=== PATIENT | male | born 1960 | race Caucasian/White ===

== ENCOUNTER 2020-06-18 08:23 | Emergency (ER) | payer MEDICAID, SELFPAY ==
[2020-06-18] VITALS (7 sets, daily range): BP systolic 115–156; BP diastolic 44–100; PULSE 107–118; RESP 20–24; TEMP 36.9–37; O2SAT 94–99; BMI 27.5
--- NOTE | 2020-06-18 08:33 | XRR_ITS ---
PROCEDURE INFORMATION: Exam: XR Chest, 1 View Exam date and time: 06/18/2020 8:48 AM Age: 60 years old Clinical indication: Shortness of breath; Additional info: Dyspnea TECHNIQUE: Imaging protocol: XR of the chest Views: 1 view. COMPARISON: No relevant prior studies available. FINDINGS: Lungs: Interstitial pulmonary infiltrates are present especially in the lung bases. This could be due to chronic fibrosis but an acute interstitial pneumonitis cannot be excluded. There is no focal airspace consolidation. Pleural space: Unremarkable. No pleural effusion. No pneumothorax. Heart/Mediastinum: Unremarkable. No cardiomegaly. Bones/joints: Unremarkable. XR/XR chest 1V portable [id number] IMPRESSION: Bibasilar interstitial infiltrates may be due to chronic fibrosis but an interstitial pneumonitis cannot be excluded. Clinical correlation and follow-up are advised.
--- NOTE | 2020-06-18 08:33 | ECG_ITS ---
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 Measurements Intervals [place] Rate: 111 P: 59 [place]: 132 QRS: 10 QRSD: 103 T: 89 QT: 355 QTc: 484 Interpretive Statements SINUS TACHYCARDIA POSSIBLE LEFT ATRIAL ENLARGEMENT [-0.1mV P WAVE IN V1/V2] ABNORMAL RHYTHM ECG No previous ECG available for comparison Electronically Signed On 06-18-2020 21:58:26 ASSEMBLY MANAGER by Kelly Pearl M.D. [id number]
--- NOTE | 2020-06-18 08:36 | W.ED.SOB ---
HPI - SOB/Dyspnea General: Chief Complaint: Shortness of Breath/Dyspnea Stated Complaint: SOB Time Seen by Provider: 06/18/20 08:25 Source: patient Mode of arrival: ambulatory Limitations: no limitations History of Present Illness: HPI Narrative: Patient comes in today with shortness of breath for 2 days. Patient called the emergency medical services this morning needing a breathing treatment as he reports. EMS gave him Brethine in order to avoid the use of nebulizer due to the COVID-19 pandemic. Patient states that he had cold symptoms for about 1 week. Patient denied any chest pain. Patient is a pack-a-day smoker. Patient does use a BiPAP machine at night. MD elicited complaint: shortness of breath Review of Systems General: Reports: 10 or more systems reviewed and unremarkable except in HPI and below Resp: Reports: dyspnea Physical Exam Const: COMMON NORMALS: no acute distress and patient oriented x3 GENERAL APPEARANCE: cooperative HENMT: COMMON NORMALS: normocephalic and Normal external nose present HEAD & SCALP: normal to inspection and normocephalic NOSE: Normal external nose present MOUTH: Normal oral and palatal mucosa present Eye: GENERAL EYE: appearance normal, both eyes and all related structures Neck/C-Spine: COMMON NORMALS: full ROM Lymph: LYMPHATIC: no lymphadenopathy noted Chest: COMMONS NORMALS: normal inspection of the chest Resp: COMMON NORMALS: normal respiratory effort EFFORT & INSPECTION: Yes able to speak in complete sentences AUSCULTATION: wheezes and diminished lung sounds Cardio: COMMON NORMALS: regular rate and regular rhythm RATE: regular rate RHYTHM: regular rhythm GI: COMMON NORMALS: non-tender Back/Pelvis: COMMON NORMALS: thoracic and lumbar spine normal to inspection Extremity: COMMON NORMALS: normal to inspection Neuro: COMMON NORMALS: patient oriented x3 and moves all extremities Psych: COMMON NORMALS: mental status grossly normal and cooperative Skin: COMMON NORMALS: no rashes or lesions noted GENERAL SKIN EXAM: no rashes or lesions noted Course Vital Signs: Vital signs: Vital Signs Temperature 98.5 F 06/18/20 08:53 Pulse Rate 116 H 06/18/20 11:00 Respiratory Rate 24 H 06/18/20 11:00 Blood Pressure 156/100 06/18/20 11:00 Pulse Oximetry 97 06/18/20 11:00 MDM - SOB/Dyspnea MDM Narrative: Medical decision making narrative: Patient came in with increased shortness of breath. Patient reported difficulty getting breath. Patient had been evaluated by EMS and they did not note significant hypoxia. Blood pressure was elevated, pulse rate was elevated, and respiration was elevated. Patient was afebrile. Lungs noted some mild wheezing with decreased air into the lower lobes. Skin was warm and dry. Differential diagnosis includes not limited to COVID-19 pneumonia, bacterial pneumonia, CHF, exacerbation of COPD. Chest x-ray noted some interstitial infiltrate bilaterally in the bases. No obvious pneumonia was noted. BNP was 1000. Troponin was 26 with no change of 2 hours. CBC noted a white count of 16,000. CMP was unremarkable. Patient was given 125 Solu-Medrol for concerns of respiratory distress due to exacerbation of COPD due to patient's history of pack-a-day smoking. After laboratory values had come back with chest x-ray it was noted that patient was probably an CHF and he was medicated with 20 of furosemide and given 2 mg of Ativan. Patient had significant improvement in symptoms after beginning diuresis. Patient reported understanding of care plan and need for follow-up or return to the emergency department. Lab Data: Labs: Lab Results 06/18/20 06/18/20 06/18/20 Range/Units 08:30 08:30 08:30 WBC 16.7 H (4.0-10.0) 10^3/ uL RBC 5.63 H (4.1-5.3) 10^6/u L Hgb 15.5 (11.7-16.6) g/dL Hct 48.7 (42.0-52.0) % MCV 86.5 (80-94) fL MCH 27.5 L (28.0-34.0) pg MCHC 31.8 (30.0-36.0) g/dL RDW 13.3 (12.1-15.1) % Plt Count 385 (130-400) 10^3/c mm MPV 10.4 (7.4-10.4) fL Neut % (Auto) 58.6 % Lymph % (Auto) 33.1 % [place] % (Auto) 4.2 % Eos % (Auto) 3.0 % Baso % (Auto) 0.5 % Neut # (Auto) 9.79 H (1.8-7.7) 10^3/u L Lymph # (Auto) 5.5 H (0.8-4.8) 10^3/u L [place] # (Auto) 0.7 (0.2-0.9) 10^3/u L Eos # (Auto) 0.5 (0.0-0.8) 10^3/u L Baso # (Auto) 0.1 (0.0-0.1) 10^3/u L Nucleated RBC % (a uto) 0 % Nucleated RBCs # 0.0 /100WBC PT 12.70 (12.1-14.9) SECO NDS INR 0.92 (0.8-1.2) APTT 28.2 (23.9-36.7) SECO NDS D-Dimer 0.56 (0-0.59) ug/mIFE U Specimen Type Sample Site ABG pH (7.35-7.45) ABG pCO2 (35-45) mmHg ABG pO2 (80.0-100.0) mmH g ABG HCO3 (22-26) mmol/L ABG Base Excess (-2.0-2.0) mmol/ L Richar Test Hematocrit (42-52) % O2 Delivery Device O2 Liters/Min % FiO2 % Diesel Truck Mechanic ID Sodium 143 (136-145) mmol/L Potassium 3.7 (3.5-5.1) mmol/L Chloride 103 (98-107) mmol/L Carbon Dioxide 27 (22-29) mmol/L Anion Gap 16.7 (5-19) BUN 14 (6-20) mg/dL Creatinine 1.1 (0.7-1.2) mg/dL GFR Calculation 68.5 L (90-130) mL/min Glucose 111 (65-115) mg/dL Calculated Osmolal ity 297 H (285-295) mOsm/k g Calcium 9.5 (8.5-10.5) mg/dL Total Bilirubin 0.2 (0.15-1.2) mg/dL AST 57 H (0-40) U/L ALT 74 H (0-41) U/L Alkaline Phosphata se 90 (40-130) IU/L Troponin T Baselin e (0-15) ng/L Troponin T 120 Min [place] (0-15) ng/L Delta Troponin T (0-10) ABS# C-Reactive Protein 1.3 (0.0-4.9) mg/L NT-Pro-B Natriuret Pep 1001 H (0-125) pg/mL Total Protein 7.2 (6.6-8.7) g/dL Albumin 4.2 (3.5-5.2) g/dL Globulin 3.0 (1.3-4.6) g/dL SARS-CoV-2 Ag (Rap id) (Negative) 06/18/20 06/18/20 06/18/20 Range/Units 08:30 08:40 09:07 WBC (4.0-10.0) 10^3/ uL RBC (4.1-5.3) 10^6/u L Hgb (11.7-16.6) g/dL Hct (42.0-52.0) % MCV (80-94) fL MCH (28.0-34.0) pg MCHC (30.0-36.0) g/dL RDW (12.1-15.1) % Plt Count (130-400) 10^3/c mm MPV (7.4-10.4) fL Neut % (Auto) % Lymph % (Auto) % [place] % (Auto) % Eos % (Auto) % Baso % (Auto) % Neut # (Auto) (1.8-7.7) 10^3/u L Lymph # (Auto) (0.8-4.8) 10^3/u L [place] # (Auto) (0.2-0.9) 10^3/u L Eos # (Auto) (0.0-0.8) 10^3/u L Baso # (Auto) (0.0-0.1) 10^3/u L Nucleated RBC % (a uto) % Nucleated RBCs # /100WBC PT (12.1-14.9) SECO NDS INR (0.8-1.2) APTT (23.9-36.7) SECO NDS D-Dimer (0-0.59) ug/mIFE U Specimen Type Arterial Sample Site Radial, left ABG pH 7.39 (7.35-7.45) ABG pCO2 41.0 (35-45) mmHg ABG pO2 139.0 H (80.0-100.0) mmH g ABG HCO3 24.6 (22-26) mmol/L ABG Base Excess -0.5 (-2.0-2.0) mmol/ L Richar Test Pos Hematocrit 46.2 (42-52) % O2 Delivery Device Nrb O2 Liters/Min 15.0 % FiO2 100.0 % Diesel Truck Mechanic ID Ed Sodium (136-145) mmol/L Potassium (3.5-5.1) mmol/L Chloride (98-107) mmol/L Carbon Dioxide (22-29) mmol/L Anion Gap (5-19) BUN (6-20) mg/dL Creatinine (0.7-1.2) mg/dL GFR Calculation (90-130) mL/min Glucose (65-115) mg/dL Calculated Osmolal ity (285-295) mOsm/k g Calcium (8.5-10.5) mg/dL Total Bilirubin (0.15-1.2) mg/dL AST (0-40) U/L ALT (0-41) U/L Alkaline Phosphata se (40-130) IU/L Troponin T Baselin e 28 H (0-15) ng/L Troponin T 120 Min [place] (0-15) ng/L Delta Troponin T (0-10) ABS# C-Reactive Protein (0.0-4.9) mg/L NT-Pro-B Natriuret Pep (0-125) pg/mL Total Protein (6.6-8.7) g/dL Albumin (3.5-5.2) g/dL Globulin (1.3-4.6) g/dL SARS-CoV-2 Ag (Rap id) Negative (Negative) 06/18/20 Range/Units 10:21 WBC (4.0-10.0) 10^3/ uL RBC (4.1-5.3) 10^6/u L Hgb (11.7-16.6) g/dL Hct (42.0-52.0) % MCV (80-94) fL MCH (28.0-34.0) pg MCHC (30.0-36.0) g/dL RDW (12.1-15.1) % Plt Count (130-400) 10^3/c mm MPV (7.4-10.4) fL Neut % (Auto) % Lymph % (Auto) % [place] % (Auto) % Eos % (Auto) % Baso % (Auto) % Neut # (Auto) (1.8-7.7) 10^3/u L Lymph # (Auto) (0.8-4.8) 10^3/u L [place] # (Auto) (0.2-0.9) 10^3/u L Eos # (Auto) (0.0-0.8) 10^3/u L Baso # (Auto) (0.0-0.1) 10^3/u L Nucleated RBC % (a uto) % Nucleated RBCs # /100WBC PT (12.1-14.9) SECO NDS INR (0.8-1.2) APTT (23.9-36.7) SECO NDS D-Dimer (0-0.59) ug/mIFE U Specimen Type Sample Site ABG pH (7.35-7.45) ABG pCO2 (35-45) mmHg ABG pO2 (80.0-100.0) mmH g ABG HCO3 (22-26) mmol/L ABG Base Excess (-2.0-2.0) mmol/ L Richar Test Hematocrit (42-52) % O2 Delivery Device O2 Liters/Min % FiO2 % Diesel Truck Mechanic ID Sodium (136-145) mmol/L Potassium (3.5-5.1) mmol/L Chloride (98-107) mmol/L Carbon Dioxide (22-29) mmol/L Anion Gap (5-19) BUN (6-20) mg/dL Creatinine (0.7-1.2) mg/dL GFR Calculation (90-130) mL/min Glucose (65-115) mg/dL Calculated Osmolal ity (285-295) mOsm/k g Calcium (8.5-10.5) mg/dL Total Bilirubin (0.15-1.2) mg/dL AST (0-40) U/L ALT (0-41) U/L Alkaline Phosphata se (40-130) IU/L Troponin T Baselin e (0-15) ng/L Troponin T 120 Min [place] 28.78 H (0-15) ng/L Delta Troponin T 0.78 (0-10) ABS# C-Reactive Protein (0.0-4.9) mg/L NT-Pro-B Natriuret Pep (0-125) pg/mL Total Protein (6.6-8.7) g/dL Albumin (3.5-5.2) g/dL Globulin (1.3-4.6) g/dL SARS-CoV-2 Ag (Rap id) (Negative) EKG Data^: EKG 1: Attestation: I personally reviewed and interpreted this EKG as follows: (840, sinus tachycardia with a rate of 111 bpm, regular rate, no ST elevation, no ectopy, reads left atrial enlargement, no prior exam is available for comparison.) EKG 2: Attestation: I personally reviewed and interpreted this EKG as follows: (1042, EKG continues to show sinus tach at 105 bpm regular rate, no ectopy no ST elevation, no changes from prior exam 2 hours ago.) Discharge Plan Discharge Patient Disposition: Home Clinical Impression: Congestive heart failure Qualifiers: Heart failure type: unspecified Heart failure chronicity: acute Qualified Code(s): I50.9 - Heart failure, unspecified Condition: Stable Prescriptions: New furosemide 20 mg tablet 20 mg PO DAILY Qty: 7 RF: 0 potassium chloride 10 mEq capsule, extended release 10 meq PO DAILY Qty: 7 RF: 0 metoprolol tartrate 25 mg tablet 12.5 mg PO BID Qty: 30 RF: 0 No Action Centrum Ultra Men's 8 mg iron- 200 mcg-600 mcg Tablet 1 tab PO DAILY@0800 RF: 0 Cough Drops 1 tab PO Q4H PRN (Reason: Cough) RF: 0 Discharge Orders: Discharge ED (Routine); Ordered 06/18/20 Ordered By: Olegario Nieto Referrals: Milo Chaudhry DO [Primary Care Provider] - Discharge Diet: Usual diet Discharge Activity: Resume usual activity Patient Instructions: Heart Failure (ED) Activity Restrictions/Additional Instructions: Try to stop smoking. Take medication as directed. You have been given 3 medications, furosemide is a diuretic to help with removal of excess fluid off the vascular system, the second medication is metoprolol which helps protect the heart muscle and control its rate to make it work better as a pump, the third medication is potassium to replace any potassium loss from the water pill furosemide. Follow-up with primary care for further treatment. Return to the emergency department for chest pain, worsening symptoms, or new concerns. Coding Level of Care Code ED Service Porter for Chg Fwd Exam Comprehensive
--- NOTE | 2020-06-18 08:54 | CTR_ITS ---
PROCEDURE INFORMATION: Exam: CT Angiography Chest With Contrast Exam date and time: 06/18/2020 9:35 AM Age: 60 years old Clinical indication: Cough and shortness of breath; Additional info: Hypoxia, dyspnea TECHNIQUE: Imaging protocol: Computed tomographic angiography of the chest with intravenous contrast. 3D rendering (Not supervised by radiologist): MIP and/or 3D reconstructed images were created by the technologist. Radiation optimization: All CT scans at this facility use at least one of these dose optimization techniques: automated exposure control; mA and/or kV adjustment per patient size (includes targeted exams where dose is matched to clinical indication); or iterative reconstruction. Contrast material: OMNIPAQUE 350; Contrast volume: 84 ml; Contrast route: INTRAVENOUS (IV); COMPARISON: CR (CHEST, ) 06/18/2020 8:48 AM RADIATION DOSE METRICS: Total DLP (mGy-cm): 620.45 FINDINGS: Pulmonary arteries: Normal. No pulmonary emboli. Aorta: Unremarkable. No aortic aneurysm. No aortic dissection. Lungs: There is dependent atelectasis in the lower lobes. There is also scattered hazy prominence of the pulmonary interstitium. This could represent an interstitial pneumonitis possibly viral in nature. Clinical correlation is advised. Pleural space: Unremarkable. No pneumothorax. No pleural effusion. Heart: There is calcification of the coronary arteries. Heart is not enlarged. Lymph nodes: There are several mildly prominent mediastinal lymph nodes. These may be reactive in nature. Gallbladder and bile ducts: Cholecystectomy. Normal bile ducts. Bones/joints: Unremarkable. No acute fracture. Soft tissues: Unremarkable. CT/CT angio chest PE protcl [id number] IMPRESSION: 1. No evidence of pulmonary embolus or aortic dissection. 2. Coronary artery calcification. 3. Bilateral hazy interstitial pulmonary infiltrates. This could represent an interstitial pneumonia possibly viral in nature. Radiation Dose CTDIVOL = (mGy): DLP = 620.45 (mGy-cm)
[2020-06-18 08:57] LABS: ABG PH Result 7.39 (7.35-7.45); Arterial Blood Gas Hematocrit 46.2 % (42-52); Base Excess ABG -0.5 mmol/L (-2.0-2.0); Blood Gas Allen Test Pos; Blood Gas Operator Identificat ED; Blood Gas Sample Site Radial, left; Blood Gas Sample Type Arterial; HCO3 ABG 24.6 mmol/L (22-26); Oxygen Device NRB
[2020-06-18] MEDS: albuterol 8 gm MDI 2 PUFF INHALATION (09:00)
[2020-06-18 09:10] LABS: Basophils # 0.1 10^3/uL (0.0-0.1); Basophils % 0.5 %; Eosinophils # 0.5 10^3/uL (0.0-0.8); Hematocrit 48.7 % (42.0-52.0); Hemoglobin 15.5 g/dL (11.7-16.6); Lymphocytes # 5.5 10^3/uL (0.8-4.8); Lymphocytes % 33.1 %; Mean Corpuscular HGB Conc 31.8 g/dL (30.0-36.0); Mean Corpuscular Hemoglobin 27.5 pg (28.0-34.0); Mean Corpuscular Volume 86.5 fL (80-94); Mean Platelet Volume 10.4 fL (7.4-10.4); Monocytes # 0.7 10^3/uL (0.2-0.9); Monocytes % 4.2 %; Neutrophils # 9.79 10^3/uL (1.8-7.7); Neutrophils % 58.6 %; Nucleated Red Blood Cells % 0 %; Platelet Count 385 10^3/cmm (130-400); Red Blood Count 5.63 10^6/uL (4.1-5.3); Red Cell Distribution Width 13.3 % (12.1-15.1); White Blood Count 16.7 10^3/uL (4.0-10.0)
[2020-06-18 09:17] LABS: INR 0.92 (0.8-1.2)
[2020-06-18 09:18] LABS: Partial Thromboplastin Time 28.2 SECONDS (23.9-36.7)
[2020-06-18 09:22] LABS: D Dimer 0.56 ug/mIFEU (0-0.59)
[2020-06-18] MEDS: iohexol 350 mg/mL 100 mL Btl IV (09:36)
[2020-06-18 09:38] LABS: Troponin(5th) Baseline 28 ng/L (0-15)
[2020-06-18 09:39] LABS: Slide Review Slide Review Perform
[2020-06-18 09:47] LABS: Alanine Aminotransferase 74 U/L (0-41); Albumin Level 4.2 g/dL (3.5-5.2); Alkaline Phosphatase 90 IU/L (40-130); Anion Gap 16.7 (5-19); Aspartate Amino Transferase 57 U/L (0-40); Blood Urea Nitrogen 14 mg/dL (6-20); C Reactive Protein 1.3 mg/L (0.0-4.9); Calcium 9.5 mg/dL (8.5-10.5); Carbon Dioxide 27 mmol/L (22-29); Chloride 103 mmol/L (98-107); Glomerular Filtration Rate 68.5 mL/min (90-130); Glucose 111 mg/dL (65-115); NT Pro B Type Natriuretic Pept 1001 pg/mL (0-125); Osmolality Calculated 297 mOsm/kg (285-295); Potassium 3.7 mmol/L (3.5-5.1); Sodium 143 mmol/L (136-145); Total Bilirubin 0.2 mg/dL (0.15-1.2); Total Protein 7.2 g/dL (6.6-8.7)
[2020-06-18 10:07] LABS: SARS Covid-2 Antigen Negative (Negative)
[2020-06-18] MEDS: FUROsemide 10 mg/mL SDV 2mL 20 MG IVP (10:21)
[2020-06-18] MEDS: LORazepam 2 mg/mL INJ 1 mL IVP (10:21)
--- NOTE | 2020-06-18 10:33 | ECG_ITS ---
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 Measurements Intervals [place] Rate: 105 P: 56 LA: 153 QRS: -5 QRSD: 99 T: 81 QT: 367 QTc: 487 Interpretive Statements SINUS TACHYCARDIA POSSIBLE LEFT ATRIAL ENLARGEMENT [-0.1mV P WAVE IN V1/V2] NONSPECIFIC T-WAVE ABNORMALITY No previous ECG available for comparison Electronically Signed On 06-18-2020 22:10:30 STATISTICAL ASSISTANT by Kelly Pearl M.D. [email or web address]
--- NOTE | 2020-06-18 10:43 | PC.NURSE ---
Urine output 500 mls
[2020-06-18 10:58] LABS: Troponin 5 2HR 28.78 ng/L (0-15); Troponin 5 2HR Delta 0.78 ABS# (0-10)
[2020-06-18] MEDS: metoprolol succinate ER (24 HR) 25 mg Tablet PO (12:09)
[2020-06-18] MEDS: potassium chloride ER 20 mEq Tablet PO (12:09)
--- NOTE | 2020-06-20 10:10 | DCPLANNER ---
evaluation manager had message to schedule a follow up appointment for patient with heart care. evaluation manager called [facility], spoke with Demetra, gave clinic patients information. A followup appointment was scheduled for Friday, July 05, 2019 at 9:[address] Rea. evaluation manager called patient to give him appointment information, unable to speak with patient at this time, spoke with patients mother, gave her the appointment information.
--- NOTE | 2020-08-12 14:41 | DCPLANNER ---
Patient had a follow up appointment scheduled for 07.05.20 with heart care - patient did attend appointment.
== END 2020-06-18 12:16 | disposition home or self-care (01) ==
PROVIDERS: Emergency Provider Nurse Practitioner Family; Family Provider Family Medicine; PCP Family Medicine
DX: I50.9 Heart failure, unspecified (principal)
CPT/HCPCS: 12345; 36415; 36600; 71045; 71275; 80053; 82803; 83880; 84484; 85025; 85378; 85610; 85730; 86140; 87426; 93005; 94640; 96374; 96375; 99283; 99284; J1940; J2060; J2930; J3535; Q9967

== ENCOUNTER 2020-08-08 13:40 | Outpatient (CLI) | payer MEDICAID, SELFPAY ==
--- NOTE | 2020-08-08 13:30 | USCV_ITS ---
Kemar Larios Age: 60 Gender: M : 1960 Exam Date: 08/08/2020 14:10 Ordering Phys: Kelly Pearl MD ([email or web address]) Technologist: Yaima Carty Exam Location: [facility] Indication: SOB BP: 156 / 98 HR: 97 Rhythm: Sinus Technical Quality: Fair MEASUREMENTS (Male / Female) Normal Values 2D ECHO LV Diastolic Diameter PLAX 5.8 cm 4.2 - 5.9 / 3.9 - 5.3 cm LV Systolic Diameter PLAX 5.3 cm LV Chamber Size 6.0 cm IVS Diastolic Thickness 1.0 cm 0.6 - 1.0 / 0.6 - 0.9 cm IVS Systolic Thickness 1.1 cm LVPW Diastolic Thickness 0.9 cm 0.6 - 1.0 / 0.6 - 0.9 cm LVPW Systolic Thickness 1.4 cm RV Chamber Size 3.3 cm LVOT Diameter 2.0 cm LV Ejection Fraction 2D Teich 19.3 % LV Ejection Fraction MOD 2C 23.7 % LV Ejection Fraction 2C AL 22.3 % LA Diameter 4.2 cm LA Width 3.9 cm LA Height 5.6 cm RA Width 3.3 cm RA Height 4.2 cm M-MODE LV Diastolic Diameter MM 6.9 cm 4.2 - 5.9 / 3.9 - 5.3 cm LV Systolic Diameter MM 6.0 cm LV Ejection Fraction MM Teich 28.0 % IVS Diastolic Thickness MM 1.2 cm 0.6 - 1.0 / 0.6 - 0.9 cm IVS Systolic Thickness MM 0.6 cm LVPW Diastolic Thickness MM 1.0 cm 0.6 - 1.0 / 0.6 - 0.9 cm LVPW Systolic Thickness MM 1.4 cm RV Diastolic Diameter MM 0.6 cm Aortic Annulus Diameter 2.9 cm LA Ao Ratio MM 1.6 MV E Point Septal Separation 1.7 cm DOPPLER AV Peak Velocity 114.0 cm/s LVOT Peak Velocity 62.0 cm/s AV Area Cont Eq vti 2.0 cm squared AV Area Cont Eq pk 1.7 cm squared MV Area PHT 4.4 cm squared Mitral E to A Ratio 1.1 MV E' Velocity 93.0 cm/s TV Peak E Velocity 53.0 cm/s Right Atrial Pressure 3.0 mmHg PV Peak Velocity 60.0 cm/s RV Acceleration Time 0.1 s RV Ejection Time 0.3 s RV AcT/ET 0.4 FINDINGS Left Ventricle Normal left ventricular size. Severely decreased left ventricular systolic function. Left ventricular ejection fraction is estimated at 25 %. Severe global hypokinesis. Right Ventricle Normal right ventricular size and systolic function. Right Atrium Normal right atrial size. Left Atrium Mildly increased left atrial size. Mitral Valve Mild mitral annular calcification. No mitral valve stenosis. Trace mitral valve regurgitation. Aortic Valve Mildly thickened trileaflet aortic valve. No aortic valve stenosis. No aortic valve regurgitation. Tricuspid Valve Structurally normal tricuspid valve. Trace tricuspid valve regurgitation. Pulmonic Valve Pulmonic valve not well visualized. No pulmonary valve stenosis. Trace pulmonary valve regurgitation. Pericardium No pericardial effusion. Aorta Normal-sized aortic root. Normal-sized inferior vena cava. CONCLUSIONS 1. Normal left ventricular size. Severely decreased left ventricular systolic function. Left ventricular ejection fraction is estimated at 25 %. Severe global hypokinesis. 2. Normal right ventricular size and systolic function. 3. Mildly increased left atrial size. 4. No significant valvular abnormality. 5. No prior similar studies to compare. Kelly Pearl MD (Electronically Signed) Final Date: 08 August 2020 16:48 S
== END 2020-08-08 13:41 | disposition home or self-care (01) ==
LOC: US 13:41
PROVIDERS: PCP Family Medicine; Visit Provider Internal Medicine Cardiovascular Disease
DX: R06.02 Shortness of breath (principal)
CPT/HCPCS: 80053; 83735; 83880; 93306

== ENCOUNTER → 2020-09-23 09:23 | Outpatient (BNVA) | payer MEDICAID, SELFPAY | PROVIDERS: PCP Nurse Practitioner Family; Referring Provider Emergency Medicine; Visit Provider Emergency Medicine | DX: Z01.818 Encounter for other preprocedural examination (principal); T23.029A Burn of unspecified degree of unspecified single finger (nail) except thumb, initial encounter | CPT/HCPCS: 80048; 85025; 85610; 87635 ==

== ENCOUNTER 2020-09-29 15:38 | Observation (INO) | payer MEDICAID, SELFPAY ==
[2020-09-29] VITALS (18 sets, daily range): BP systolic 102–167; BP diastolic 75–111; PULSE 88–97; RESP 11–23; TEMP 36.4–36.7; O2SAT 96–99; BMI 30.7
--- NOTE | 2020-09-29 08:30 | XACV_ITS ---
Exam Room: [facility] Ht: 178 cm Wt: 97 kg BSA: 2.22 m2 Gender: Male : 1960 Exam Priority: Routine Procedure(s): Procedure Description: Diagnostic procedure Procedure Description: Left Heart Catheterization Diagnostic Cath Status: Elective Diagnostic Findings * LM has 0% stenosis. * CX has 0% stenosis. * Mid Left Anterior Descending Coronary Artery: Severe 80% stenosis, YONG: 3 flow. * Proximal Right Coronary Artery: Severe 80% stenosis, YONG: 0 flow. * Mid Right Coronary Artery: Severe 100% stenosis, YONG: 0 flow. * Distal Right Coronary Artery: Severe 90% stenosis, YONG: 0 flow. * RPDA: Moderate 50% stenosis, YONG: 3 flow. * Coronary angiography shows right dominance. Interventional Findings * Mid Left Anterior Descending Coronary Artery: 80% stenosis treated with MDT R DEMOND 3.0X22 REAGAN and MDT NC EUPHORA RX 3.26Y16JP BALLOON. 0% residual stenosis, YONG: 3 flow. * Proximal Right Coronary Artery: 80% stenosis treated with MDT R DEMOND 3.0X18 REAGAN and MDT NC EUPHORA RX 3.70Y40JH BALLOON. 0% residual stenosis, YONG: 3 flow. * Mid Right Coronary Artery: 100% stenosis treated with AB TREK 2.75X15 RX BALLOON, MDT R DEMOND 3.0X12 REAGAN, and MDT NC EUPHORA RX 3.39C91AR BALLOON. 0% residual stenosis, YONG: 3 flow. * Distal Right Coronary Artery: 90% stenosis treated with AB MINI TREK 2.00X12 RX BALLOON, AB TREK 2.50X12 RX BALLOON, MDT R DEMOND 3.0X15 REAGAN, MDT R DEMOND 2.75X15 REAGAN, and MDT NC EUPHORA RX 3.94A71BJ BALLOON. 0% residual stenosis, YONG: 3 flow. Conclusions 1. Right heart cath #1 RA 17 mmHg#2 RV 37/7 mmHg#3 PA mean 29 mmHg#4 PCWPCardiac output by Ismael 3 L/min, cardiac index 2.0, no stepup noted. 2. FFR: After equalizing the distal and proximal pressure of FFR wire proximal to the lesion, mid LAD lesion was crossed with FFR wire. IV adenosine at rate of 140 mcg/min was started. Patient did not compliant of any symptoms, at then end of two minutes FFR was recorded as 0.72, which is significant Indication for left heart cath: Cardiomyopathy new onset, worsening of heart failure symptoms. 3. There is severe coronary artery disease with two vessel disease. 4. Mid Left Anterior Descending Coronary Artery was treated with Drug Eluting Stent and Balloon. 5. Proximal Right Coronary Artery was treated with Drug Eluting Stent and Balloon. 6. Mid Right Coronary Artery was treated with two Balloon and Drug Eluting Stent. 7. Distal Right Coronary Artery was treated with three Balloon and two Drug Eluting Stent. Recommendations * 1-Return to inpatient for close monitoring and routine cath care 2-Risk factor modification for secondary prevention 3-Statin and aspirin 81 mg life--long, if tolerated 4-Patient was pre-loaded with 600 mg of Plavix, continue Plavix 75mg p.o. daily for at least one year. We will assess at the end of one year again to continue if further or not 5-Continue optimal medical management 6-Follow up with CARDIOLOGY in four weeks and your primary care in 10 days. Diagnostic RX Recommendation: PCI w/o planned CABG Pressures Phase:Rest RV : 37 / 7 / @ 12:48:00 PM PA : 43 / 22 ( 29 ) @ 12:46:00 PM RA : a wave = v wave = mean = 17 @ 12:49:00 PM O2 Content Phase:Rest PA : O2 Content O2: 57.8 @ 12:56:00 PM Saturations Phase:Rest AO : 97 @ 12:46:00 PM RA : 58 @ 12:49:00 PM RV : 52 @ 12:48:00 PM PA : 58 @ 12:56:00 PM Cardiac Output Phase:Rest Ismael : 3 @ 12:46:00 PM Ismael Cardiac Index: 2 @ 12:46:00 PM Clinical Evaluation EBL: 5mL-10mL Procedural Details Procedure Consent Obtained. Admit Source: In Patient. Pre-Procedure Time Out. Identified patient by full name and date of as verbalized by the patient/guarantor. Does the consent match the physician's order: Yes. Accurate & Complete Informed Consent: Yes. Inpatient/Outpatient History & Physical on Chart: Yes. If H&P is completed, is and addenduem needed: N/A; If yes, is the addendum complete: N/A. Visualize and Verify Site with Patient/Guarantor: N/A. Relevant Radiology Images available: N/A. Pre-op teaching completed and patient verbalized understanding. The risks, benefits, and alternatives of sedation and/or procedure were discussed by physician. The patient agrees to continue. Procedure started. Correct patient, site and procedure confirmed by cath team. PERRLA. Strong, equal hand frame and scrap crusher bilaterally. Lungs clear x 5 lobes. IV Site on Arrival: 18 gauge in the right anticubital. IV Site on Arrival: 20 gauge in the left anticubital. Pre Procedural Pulses: bilateral dorsalis pedis was 1+. Pre Procedural Pulses: bilateral posterior tibial was 3+. Pre Procedural Pulses: bilateral radial was 3+. Oxygen started at 2liters/min via nasal canula. bilateral groins was prepped with chloroprep then draped in the usual sterile fashion. right radial was prepped with chloroprep then draped in the usual sterile fashion. Physician notified. Baseline sample Acquired. HR: 122 BPM. Physician arrived. Physician scrubbed in. Immediate Pre-Procedure Time Out. Correct Patient: Yes; Correct Procedure: Yes; Correct Site: Yes; Correct Patient Position: Yes; Correct Supplies: Yes; Dried Flammable Prep: Yes; Blood Products Available: N/A;. Lidocaine 1% infiltrated to the right brachial. Venous access obtained. [place] MON catheter inserted. [place] out. Lidocaine 1% infiltrated to the right radial. Arterial access obtained. A 5 polish TIG catheter in over wire. oxygen turned back on 2LPM NC. Multiple views taken of left coronary artery. Catheter redirected to the RCA. Multiple views taken of right coronary artery. Side port of sheath attached to Normal Saline flush at KVO to maintain patency. Catheter out. 6 polish JR 4 guide catheter was inserted over the wire. [place] guidewire was advanced through the guide catheter. wire out. Guide catheter out. 6 polish AL 0.75 guide catheter was inserted over the wire. AP pads applied and turned on. Inflation number : 1 A AB MINI TREK 2.00X12 RX BALLOON was prepped and advanced across the Dist RCA , then inflated to 15 SUJIT for 0:09 seconds. Inflation number: 2 The AB MINI TREK 2.00X12 RX BALLOON was reinflated across the Dist RCA, to 15 SUJIT for 0:13 seconds. Inflation number: 3 The AB MINI TREK 2.00X12 RX BALLOON was reinflated across the Dist RCA, to 15 SUJIT for 0:09 seconds. Inflation number: 4 The AB MINI TREK 2.00X12 RX BALLOON was reinflated across the Dist RCA, to 15 SUJIT for 0:14 seconds. Inflation number: 5 The AB MINI TREK 2.00X12 RX BALLOON was reinflated across the Dist RCA, to 15 SUJIT for 0:12 seconds. Inflation number: 6 The AB MINI TREK 2.00X12 RX BALLOON was reinflated across the Dist RCA, to 15 SUJIT for 0:06 seconds. Inflation number: 7 The AB MINI TREK 2.00X12 RX BALLOON was reinflated across the Dist RCA, to 15 SUJIT for 0:15 seconds. Inflation number: 8 The AB MINI TREK 2.00X12 RX BALLOON was reinflated across the Dist RCA, to 15 SUJIT for 0:11 seconds. Balloon out. jermaineesisia notified and arrived to help sedate patient. Inflation number : 1 A AB TREK 2.75X15 RX BALLOON was prepped and advanced across the Mid RCA , then inflated to 18 SUJIT for 0:48 seconds. Inflation number: 2 The AB TREK 2.75X15 RX BALLOON was reinflated across the Mid RCA, to 12 SUJIT for 0:32 seconds. Balloon out. 6F guideliner inserted. family updated by Daniel Can RN. guidliner out. wire out. [place] guidewire was advanced through the guide catheter to lesion in the distal RCA. Inflation number : 9 A AB TREK 2.50X12 RX BALLOON was prepped and advanced across the Dist RCA , then inflated to 12 SUJIT for 0:20 seconds. Inflation number: 10 The AB TREK 2.50X12 RX BALLOON was reinflated across the Dist RCA, to 12 SUJIT for 0:15 seconds. Inflation number: 11 The AB TREK 2.50X12 RX BALLOON was reinflated across the Dist RCA, to 12 SUJIT for 0:12 seconds. Inflation number: 12 The AB TREK 2.50X12 RX BALLOON was reinflated across the Dist RCA, to 18 SUJIT for 0:12 seconds. Inflation number: 13 The AB TREK 2.50X12 RX BALLOON was reinflated across the Dist RCA, to 18 SUJIT for 0:10 seconds. Balloon out. checking results. Inflation Number : 14 A MDT R DEMOND 3.0X15 REAGAN -Lot Number# [id number] exp date: 06-14-2022 was prepped and advanced across the Dist RCA. The stent was deployed at 14 SUJIT for 0:17 seconds. Inflation Number : 3 A MDT R DEMOND 3.0X12 REAGAN -Lot Number# [id number] exp date: 06-20-2022 was prepped and advanced across the Mid RCA. The stent was deployed at 14 SUJIT for 0:18 seconds. Stent balloon out over wire. Inflation Number : 1 A MDT R DEMOND 3.0X18 REAGAN -Lot Number# [id number] exp date: 05-11-2022 was prepped and advanced across the Prox RCA. The stent was deployed at 16 SUJIT for 0:22 seconds. Stent balloon out over wire. Inflation Number : 15 A MDT R DEMOND 2.75X15 REAGAN -Lot Number# [id number] exp date: 05-22-2022 was prepped and advanced across the Dist RCA. The stent was deployed at 18 SUJIT for 0:33 seconds. Stent balloon out over wire. Inflation number : 16 A MDT NC EUPHORA RX 3.64X94AM BALLOON was prepped and advanced across the Dist RCA , then inflated to 8 SUJIT for 0:12 seconds. Inflation number: 4 The MDT NC EUPHORA RX 3.51W66DE BALLOON was reinflated across the Mid RCA, to 12 SUJIT for 0:14 seconds. Inflation number: 2 The MDT NC EUPHORA RX 3.75X09ON BALLOON was reinflated across the Prox RCA, to 14 SUJIT for 0:17 seconds. Inflation number: 3 The MDT NC EUPHORA RX 3.87U23ZE BALLOON was reinflated across the Prox RCA, to 14 SUJIT for 0:20 seconds. checking results. wire out. Balloon out. proceed to FFR the LAD. FFR wire inserted. advanced through Prox LAD. An FFR value of 0.72 was obtained for a lesion located at Prox LAD. Inflation Number : 1 A MDT R DEMOND 3.0X22 REAGAN -Lot Number# [id number] exp date: 06-15-2022 was prepped and advanced across the Mid LAD. The stent was deployed at 16 SUJIT for 0:26 seconds. Stent balloon out over wire. Inflation number : 2 A MDT NC EUPHORA RX 3.28I27MK BALLOON was prepped and advanced across the Mid LAD , then inflated to 16 SUJIT for 0:22 seconds. Inflation number: 3 The MDT NC EUPHORA RX 3.30P24QJ BALLOON was reinflated across the Mid LAD, to 14 SUJIT for 0:07 seconds. Inflation number: 4 The MDT NC EUPHORA RX 3.40R19GZ BALLOON was reinflated across the Mid LAD, to 14 SUJIT for 0:08 seconds. Balloon out. Wire out. checking results. Guide catheter out. TR band placed. Hemostasis obtained. Post Procedure: Pulses reassessed and unchanged. PERRLA. Strong, equal hand frame and scrap crusher bilaterally. No VTE prophylaxis required. ACT drawn. Results 166 seconds. Therapeutic limits - pre-heparin administration 90-150 seconds and monitoring heparin during a vascular procedure >250 seconds. Medication's Wasted: Lidocaine 1% = 10 mL. Medication's Wasted: Nitro = 49.6 mg. Medication's Wasted: Heparin = 1000 units. Medication's Wasted: Other = fentanyl 50 mg. Medication's Wasted: Other = adenosine 58 mg. Total IV fluids: 181 mL. Contrast type used: Omnipaque 300 mgI/mL, 500 mL bottle. Contrast Material : Omnipaque 620 ml. A TR Band was successful obtaining hemostatsis at the Right Radial artery insertion site. A Manual Compression was successful obtaining hemostatsis at the Right Brachial Vein insertion site. Sheath(s) removed and manual pressure held until hemostasis was achieved. Sterile 4x4 and Op-site applied to the puncture site. No oozing or hematoma noted. Post sheath removal instructions were given and the patient verbalized understanding. [facility] Clinical Fraility Score: 3: Managing Well. Time Study Observer Indications: Cardiomyopathy. Time Study Observer Indications: LV Dysfunction. Chest Pain Symptom Assessment: Atypical Angina. Cardiovascular Instability: No,. PCI Indication: 2vessel sever CAD. Post-op diagnosis: multiple stent to RCA and LAD prox. Complications: none. Estimated blood loss: 5mL-10mL. Procedure completed. Patient transferred by wheelchair to 1st floor. Vital chart was stopped. Access Site Site: Right Brachial Vein Sheath Size: 6 Fr Hemostasis Method: Manual Compression Hemostasis Success: Successful Site: Right Radial artery Sheath Size: 6 Fr Hemostasis Method: TR Band Hemostasis Success: Successful Procedure Medications Start: 5:33 PM Stop: 5:33 PM Medication: Versed Amount: 1 mg Route: I.V. Start: 5:33 PM Stop: 5:33 PM Medication: Fentanyl Amount: 50 mcg Route: I.V. Start: 5:43 PM Stop: 5:43 PM Medication: Versed Amount: 1 mg Route: I.V. Start: 5:53 PM Stop: 5:53 PM Medication: Nitrogylcerin Amount: 200 mcg Route: I.A. Start: 5:57 PM Stop: 5:57 PM Medication: Heparin Amount: 5000 units Route: I.V. Start: 6:08 PM Stop: 6:08 PM Medication: Heparin Amount: 5000 units Route: I.V. Start: 6:14 PM Stop: 6:14 PM Medication: Aggrastat 12.5 mg/250 mL Amount: 49 ml Route: I.V. bolus Start: 6:15 PM Stop: 6:15 PM Medication: Aggrastat 12.5 mg/250 mL Amount: 17.6 ml/hr Route: I.V. drip Start: 6:43 PM Stop: 6:43 PM Medication: Nitrogylcerin Amount: 200 mcg Route: I.C. Start: 7:20 PM Stop: 7:20 PM Medication: Nitrogylcerin Amount: 200 mcg Route: I.C. Start: 7:34 PM Stop: 7:34 PM Medication: Adenosine (Adenocard) Amount: 8.23 mcg Route: I.V. bolus Start: 7:56 PM Stop: 7:56 PM Medication: Heparin Amount: 4000 units Route: I.V. I, the attending physician, have reviewed and verified all procedure medications. Yes, all medications given per verbal order History/Risk Factors Tobacco Use: Current/Recent(w/in 1 year) Report Signatures Finalized by Jd Hinds MD on 10/08/2020 04:48 PM
[2020-09-29] MEDS: diphenhydrAMINE 50 mg Capsule PO (09:05)
--- NOTE | 2020-09-29 14:51 | PC.NURSE ---
Pt presents sitting up in bed playing cards with girlfriend. Pt is A&O x4. Resp even and non-labored no distress noted. Pt had no c/o pain or discomfort at the present time. call light in reach will cont to monitor.
--- NOTE | 2020-09-29 17:32 | W.PM.OPSFHP ---
Same Day Surgery H&P Indication for Procedure/HPI DATE OF PROCEDURE: September 29, 2020 CHIEF COMPLAINT/INDICATIONFOR SURGICAL PROCEDURE: New onset of heart failure, severe LV dysfunction PREOP DIAGNOSIS: New onset of heart failure. Severe LV dysfunction PLANNED PROCEDRUE: Operation Date: 09/29/20 08:30 Proposed Procedures p Cardiac Catheterization 66798 R06.02(Left) - Jd Hinds MD 60-year-old male past medical history significant for new onset of heart failure with severe LV dysfunction has been referred to us for left and right heart catheterization. Past medical history significant for chronic tobacco abuse. Currently denies chest pain. He appeared to be euvolemic. I have detailed discussion with the patient regarding all risk benefit and alternative for the procedure. I have explained him risk for major minor major bleed, urgent emergent bypass, arrhythmia, stroke, infection and in worse case scenario . He would like to proceed with it and agree to all risk and benefit Medications/Allergies* Allergies/Adverse Reactions Allergy/AdvReac Type Severity Reaction Status Date / Time No Known Allergies Allergy Verified 09/23/20 09:09 Current Medications: Generic Name Dose Route Start Last Admin Trade Name Freq PRN Reason Stop Dose Admin Sodium Chloride 1,000 mls @ 50 mls/hr 09/29/20 07:30 09/29/20 09:05 Sodium Chloride 0.9% IV 09/30/20 03:29 Not Given .Q20H ONE Pertinent History/Comorbid Conditions* Medical History Erectile dysfunction Smoker Surgical History (Updated 07/20/20 @ 14:10 by Kelly Pearl MD) Hx of cholecystectomy Family History (Updated 07/20/20 @ 13:51 by Olga Lidia Bauer RN) Diabetes Cancer Denies family history of Stroke Social History Smoking and tobacco status: current every day smoker Alcohol intake: current Alcohol intake frequency: holidays/special occasions only Pertinent Exam Findings alert, oriented x 3 and clear to auscultation bilaterally Conscious Sedation Assessment PATIENT ASSESSED PRIOR TO SEDATION, WITH NO CHANGE NOTED: Yes AIRWAY EVAL/ANESTHESIA PLAN: normal airway, ASA II and Risks, benefits & alternatives of sedation and/or procedure discussed Recommendations Surgery/Procedure today Coding Level of Care Code New Pt Acute Clinical Supervisor for Chg Fwd Patient Type New History Detailed Exam Detailed Medical Decision Making Moderate Complexity
--- NOTE | 2020-09-29 18:31 | ANES.PREANE2 ---
Pre-Anesthetic Assessment Pre-Anesthetic Assessment: Height/Weight: Height 1.78 m Weight 97.069 kg Temp Pulse Resp BP Pulse Ox 98.1 F 88 17 133/86 97 09/29/20 08:17 09/29/20 08:17 09/29/20 08:17 09/29/20 08:17 09/29/20 08:17 Preop Diagnosis: New onset of heart failure. Severe LV dysfunction Proposed Procedure: Operation Date: 09/29/20 08:30 Proposed Procedures p Cardiac Catheterization 42381 R06.02(Left) - Jd Hinds MD Was Beta Flaok taken within 24 hours: Yes Was Clonidine taken within 24 hours: N/A Last Intake: 23:00 Social: Social History: No tobacco Packs per day: 1ppd Pack years: 40+ Exam: Pre-Anes Outpt Exam: alert, oriented x 3, clear to auscultation bilaterally and regular rate & rhythm Airway: Submandibular: WNL Cervical ROM: WNL MP: 2 Pulmonary: Pulmonary: COPD CV/HEM: CV/HEM: CAD and HTN : : None reported Hepatic: Hepatic: None reported GI: GI: None reported Metabolic: Metabolic: None reported Musc/skel: Musc/skel: OA/DJD Comments: RLS Neuropsych: Neuropsych: None reported Anesthetic Plan: ASA status: 3 Anesthesia: MAC Meds/Allergies Current Medications: Current Medications Generic Name Dose Route Start Last Admin Trade Name Freq PRN Reason Stop Dose Admin Sodium Chloride 1,000 mls @ 50 ml s/hr 09/29/20 07:30 09/29/20 09:05 Sodium Chloride 0.9% IV 09/30/20 03:29 Not Given .Q20H ONE PFSH Anesthesia PFSH: Medical History Erectile dysfunction Smoker Surgical History Hx of cholecystectomy Family History Other Cancer Diabetes Denies family history of Stroke Social History Smoking and tobacco status: current every day smoker Alcohol intake: current Alcohol intake frequency: holidays/special occasions only Data Anesthesia Cardiac Studies: No Data to Display
--- NOTE | 2020-09-29 20:15 | PC.NURSE ---
Arrival Patient arrived via bed from Application Developer. Patient was moving his arms and legs. Patient status post cath with the use of anesthesia. TR band in place to right wrist. No S/S of bleeding or hematoma present upon arrival, and continues to have no S/S of hematoma formation. Instructed patient on sight care and restrictions. Patient verbalized understanding.
[2020-09-29] MEDS: atorvastatin 40 mg Tablet PO (20:48)
[2020-09-29] MEDS: ticagrelor 90 mg Tablet 180 MG PO (20:48)
--- NOTE | 2020-09-29 20:48 | PC.NURSE ---
Patient received from trestle mainternance laborer via bed at 2008. Received bedside report from PIEDAD Sanchez. Patient is s/p left and right heart catheterization with use of anesthesia. Anesthesia RN at bedside at time of report. Patient received Ketamine and propofol during procedure. Patient was restless and unaware of his surrounding upon arriving to floor. Patient has been moved closer to nurses' station for safety. Patient is arousing at this time. Patient requesting to eat. Patient being given brilinta at this time. Patient has Aggrastat running, to be discontinued at [address] Hinds.
[2020-09-29] MEDS: sodium chloride 0.9% 1,000 ML 100 ML IV (20:51)
--- NOTE | 2020-09-29 20:55 | PC.NURSE ---
Aggrastat non-admin due to being started in research lab assistant.
--- NOTE | 2020-09-29 22:22 | PC.NURSE ---
Aggrastat Aggrastat discontinued @ 2228 per protocol.
--- NOTE | 2020-09-29 22:45 | PC.NURSE ---
Patient reports using bipap at home. Informed Dr Hinds. Received telephone for order for bipap with home settings. RBVO
[2020-09-30] VITALS (19 sets, daily range): BP systolic 104–145; BP diastolic 62–100; PULSE 77–104; RESP 12–20; TEMP 36.2–37.1; O2SAT 94–99
--- NOTE | 2020-09-30 00:09 | PC.NURSE ---
Patient resting in bed. Denies pain or any needs at this time.
--- NOTE | 2020-09-30 02:21 | PC.NURSE ---
Initiated TR band removal at 2225 per protocol removing 2ml of air every 15-20min. Band was completely removed at 0140. No s/s of bleeding or hematoma formation observed. Applied folded 2x2 and bio-occlusive dressing. Instructed patient on site care and restrictions. Patient verbalized understanding.
[2020-09-30] MEDS: sodium chloride 0.9% 1,000 ML 100 ML IV ×2 (04:32→18:29)
--- NOTE | 2020-09-30 04:36 | PC.NURSE ---
Fluids started in laboratory mechanical technician completed. Hung new bag.
--- NOTE | 2020-09-30 05:36 | PC.NURSE ---
Patient continues to rest in bed with eyes closed. TR band removal @ 0140. No hematoma present. Will continue to monitor patient.
--- NOTE | 2020-09-30 06:49 | PC.NURSE ---
End of shift summary Patient has rested well during the night. No bleeding/hematoma at cath insertion sight. Patient has no complaints at this time.
--- NOTE | 2020-09-30 07:55 | PC.NURSE ---
Pt sitting up in bed eating breakfast and talking to staff. Pt stated I just woke up with a funny feeling and discomfort in my chest. No shortness of breath. Its better now Pt rated pain a 1/10. Resp even and non-labored no distress noted. Pt call light in reach. No needs voiced at the present time. Will cont to monitor.
[2020-09-30 09:55] LABS: Basophils # 0.1 10^3/uL (0.0-0.1); Basophils % 0.5 %; Eosinophils # 0.4 10^3/uL (0.0-0.8); Eosinophils % 2.9 %; Hematocrit 48.1 % (42.0-52.0); Hemoglobin 15.6 g/dL (11.7-16.6); Lymphocytes # 3.1 10^3/uL (0.8-4.8); Lymphocytes % 20.4 %; Mean Corpuscular HGB Conc 32.4 g/dL (30.0-36.0); Mean Corpuscular Hemoglobin 27.5 pg (28.0-34.0); Mean Corpuscular Volume 84.7 fL (80-94); Mean Platelet Volume 10.2 fL (7.4-10.4); Monocytes # 0.8 10^3/uL (0.2-0.9); Monocytes % 5.4 %; Neutrophils # 10.86 10^3/uL (1.8-7.7); Neutrophils % 70.3 %; Nucleated Red Blood Cells % 0 %; Platelet Count 320 10^3/cmm (130-400); Red Blood Count 5.68 10^6/uL (4.1-5.3); White Blood Count 15.4 10^3/uL (4.0-10.0)
[2020-09-30] MEDS: FUROsemide 10 mg/mL SDV 4mL 40 MG IVP (09:56)
[2020-09-30] MEDS: doxycycline 100 mg Tablet PO ×2 (09:57→18:28)
[2020-09-30] MEDS: metoprolol succinate ER (24 HR) 25 mg Tablet PO (09:57)
[2020-09-30] MEDS: ticagrelor 90 mg Tablet PO ×2 (09:57→18:28)
[2020-09-30] MEDS: potassium chloride ER 20 mEq Tablet PO (09:58)
[2020-09-30 10:16] LABS: Blood Urea Nitrogen 15 mg/dL (6-20); Carbon Dioxide 25 mmol/L (22-29); Chloride 100 mmol/L (98-107); Glomerular Filtration Rate 76.5 mL/min (90-130); Glucose 104 mg/dL (65-115); NT Pro B Type Natriuretic Pept 901 pg/mL (0-125); Osmolality Calculated 287 mOsm/kg (285-295); Sodium 138 mmol/L (136-145)
--- NOTE | 2020-09-30 11:50 | PC.CHAP ---
Pastoral Care Encounter/Spiritual Assessment Type of Contact [] Declined slime plant operator visit [] Patient/Family/Request visit [] Outpatient visit [] Follow-up visit [] Physician referral [] Code/Alert [xx] Routine visit [] Staff referral [] Actively dying [] Patient sleeping [] Family support [] [] Out of room [] Palliative care [] [] Receiving care in room [] Pre-surgical visit [] Trauma [] Long length of stay [] ICU visit [] Other: Relational/Emotional Strength [xx] Patient feels connected with others/family/visitors/staff [] Distress [] Loneliness/isolation [] Abandonment Spirituality of Patient [xx] Person of Sarita [xx] Attends Jehov[employer] Witness of their Sarita [xx] Believes in Prayer [xx] Reads Bible or Congregation materials [] There are Spiritual issues to be addressed Research Nurse Interventions [xx] Prayer [xx] Active listening [xx] Non-anxious presence [] Spiritual/emotional support [] Crisis/trauma care [] Spiritual counseling [] Bereavement support [] Provided bereavement packet [] Provided Bible/devotional materials [] Provided toy/stuffed animal, coloring book to patient or family member [] Provided Communion [] Anointing/[place] [] Salvation [xx] Completed spiritual assessment [] Other: Impact on Illness or Injury [] Angry [] Fearful [] Anxious [] Often cries [] Exhaustion [] Unable to work [] Unable to attend cheondoism [] Unable to walk/stand [] Unable to read [] Unable to drive [] Unable to eat/drink [] Unable to sleep [] Unable to be with family [] Patient intubated [] Other: Summary Patient specifically requested special prayere for God's will to be done in his life. He will be discharged Saturday and plans to attend [facility] with his mother. Time spent with patient 6 minutes
--- NOTE | 2020-09-30 13:37 | PC.NURSE ---
Pt lying in bed resting with eyes closed pt wearing bipap. Pt resp even and non-labored no distress noted. Pt had no s/s of pain or discomfort at the present time. No needs voiced. Call light in reach. Will continue to monitor.
[2020-09-30] MEDS: FUROsemide 20 mg Tablet PO (18:28)
--- NOTE | 2020-09-30 19:06 | PM.PN ---
Subjective Subjective: Interval history: Post PCI no overnight event. Appeared to be slightly volume overloaded Vitals/I&O/Wt Last Vital Signs Temp 98.7 F 09/30/20 18:09 Pulse 104 H 09/30/20 18:09 Resp 12 09/30/20 18:09 BP 104/62 09/30/20 18:09 Pulse Ox 95 09/30/20 18:09 09/30/20 09/30/20 09/30/20 06:59 14:59 22:59 Intake Total 768.333 / 768.333 240 / 240 1360 / 1600 Balance 768.333 / 768.333 240 / 240 1360 / 1600 Weight last 48 hrs Weight 214 lb Physical Exam Narrative: EXAM NARRATIVE: GENERAL: Patient is alert, awake and oriented x3. NECK: No jugular vein distension. HEENT: No cyanosis. No icterus. No pallor. HEART: Regular S1 and S2. No murmur, rub or gallop. LUNGS: Decreased breath sound auscultate bilaterally. ABDOMEN: Soft, nontender and nondistended. Positive bowel sounds. No guarding, rebound or tenderness. CENTRAL NERVOUS SYSTEM: Grossly nonfocal. EXTREMITIES: Lower extremities with 1+ edema bilaterally. Pulses palpable in the lower extremities, both dorsalis pedis and posterior tibial. Data : 09/30/20 09:35 09/30/20 09:35 A&P Assessment and plan (1) Cardiomyopathy: S/p multiple drug-eluting stents 4 in RCA due to highly torturous calcified tandem lesions and inability for the stent to cross we have reviewed this chart stents in multiple fashion. All the stents were postdilated with noncompliant balloon. Status post PCI to mid LAD for being significant with help of FFR 0.77. It was treated with single drug-eluting stent posted with noncompliant balloon. Continue current regimen. Continue Brilinta 90 mg twice a day with aspirin 81 mg p.o. daily. Status: Acute Qualifiers: Cardiomyopathy type: ischemic Qualified Code(s): I25.5 - Ischemic cardiomyopathy (2) CHF (congestive heart failure), NYHA class III: Well compensated I will give patient IV diuretics Status: Acute Qualifiers: Congestive heart failure type: systolic Congestive heart failure chronicity: chronic Qualified Code(s): I50.22 - Chronic systolic (congestive) heart failure Attestations Medical Necessity Statement*: Require continuation hospitalization for above defined care. Coding Level of Care Code Established Pt Acute Speech Pathology Supervisor for Chg Fwd Patient Type Established History Detailed Exam Detailed Medical Decision Making Moderate Complexity Diagnoses Cardiomyopathy I25.5 Cardiomyopathy type: ischemic CHF (congestive heart failure), NYHA class III I50.22 Congestive heart failure type: systolic Congestive heart failure chronicity: chronic
--- NOTE | 2020-09-30 19:40 | PC.NURSE ---
Shift Assessmeent Pt resting in bed w/eyes open using B-Pap. A & O x4. No complaints of pain or in need of anything at this time. Nurse will continue to monitor.
[2020-09-30] MEDS: temazepam 15 mg Capsule PO (21:01)
[2020-09-30] MEDS: atorvastatin 40 mg Tablet PO (21:01)
[2020-09-30] MEDS: acetaminophen-codeine 300-30mg Tablet 1 TAB PO (21:02)
--- NOTE | 2020-09-30 21:08 | PC.NURSE ---
After giving patient his medications patient started coughing and vomited a small amount. No pills noticed in emesis. Patient states this happens often after drinking. Patient is not complaining of any SOB, pain or other complaints at this time. Nurse will continue to monitor.
--- NOTE | 2020-09-30 21:31 | PC.NURSE ---
Fluids discontinued per Dr. Hinds orders. RBVO
[2020-10-01] VITALS (12 sets, daily range): BP systolic 100–139; BP diastolic 59–85; PULSE 79–106; RESP 14–21; TEMP 36.5–36.7; O2SAT 92–99
[2020-10-01] MEDS: potassium chloride ER 20 mEq Tablet PO ×2 (09:19→14:40)
[2020-10-01] MEDS: doxycycline 100 mg Tablet PO (09:19)
[2020-10-01] MEDS: metoprolol succinate ER (24 HR) 25 mg Tablet PO (09:19)
[2020-10-01] MEDS: ticagrelor 90 mg Tablet PO (09:21)
[2020-10-01] MEDS: spironolactone 25 mg Tablet PO (10:34)
--- NOTE | 2020-10-01 11:48 | PC.NURSE ---
Addendum entered by Aguilar Laruent RN 10/01/20 15:43: COUPON FOR BRILINTA IS PROVIDED TO PT. [facility] FOR PT'S COUPON. Original Note: med to bed Brilinta brought in for pt's new Rx.
--- NOTE | 2020-10-01 14:00 | PC.NURSE ---
Discharge to home with caregiver Instructed pt the importance of following -up with his appointments. Educated pt regarding cardiac rehab, to stop smoking, change his lifestyle and diet modifications such as low salt diet and take all his new and home meds as prescribed by his doctors. Discuss to pt regarding chf stoplight, new meds actions, dosing, timing and possible side effects. Discharge packet provided to pt.
[2020-10-01 14:34] LABS: Anion Gap 16.2 (5-19); Blood Urea Nitrogen 24 mg/dL (6-20); Calcium 9.3 mg/dL (8.5-10.5); Carbon Dioxide 24 mmol/L (22-29); Chloride 100 mmol/L (98-107); Glomerular Filtration Rate 76.5 mL/min (90-130); Glucose 123 mg/dL (65-115); Osmolality Calculated 287 mOsm/kg (285-295); Potassium 4.2 mmol/L (3.5-5.1); Sodium 136 mmol/L (136-145)
--- NOTE | 2020-10-01 14:36 | PM.DCS ---
Discharge Providers Date of Admission: 09/29/20 15:38 Date of Discharge: October 01, 2020 Attending Provider at Admission: Jd Hinds MD Attending Provider at Discharge: Jd Hinds MD Primary Care Provider: Joanie Velez APRN Diagnoses at Discharge Discharge Diagnosis (1) Cardiomyopathy: Status: Acute Qualifiers: Cardiomyopathy type: ischemic Qualified Code(s): I25.5 - Ischemic cardiomyopathy (2) CHF (congestive heart failure), NYHA class III: Status: Acute Qualifiers: Congestive heart failure chronicity: chronic Congestive heart failure type: systolic Qualified Code(s): I50.22 - Chronic systolic (congestive) heart failure Reason for Visit Reason for Visit: [facility] Hospital Course Hospital Course 60-year-old male patient of Dr. Pearl was referred to us for right and left heart catheterization for worsening and new onset of heart failure. He was noted to have multiple lesions of the right coronary artery which he was highly calcified and tortuous with mid LAD significant stenosis by FFR. Patient was thought to be suitable candidate for coronary intervention, he also declined CABG, due to highly calcified tortuous nature of the right coronary artery and because of the fact long stents were not able to cross we have to shorten the length of stents and deliver them to in the distal and 2 in the proximal to mid RCA with excellent angiographic results. All those stents were postdilated with noncompliant balloon. FFR was performed in mid LAD lesion which turned out to be significant at 0.77. It was treated with single drug-eluting stent postdilated with noncompliant balloon. Anesthesia was used for the later part of intervention due to noncompliance of the patient on the table and a lot of movements with jerking both legs. Post PCI patient continues to do fine. His medicines were adjusted. He recommended LifeVest for 90 days since patient has ejection fraction less than 25% as per echocardiogram in August or 2020. Patient would not like to wait for LifeVest to arrive in the hospital. He would like to go home. He understand the risk of malignant arrhythmia like ventricular tachycardia ventricular fibrillation leading to sudden cardiac . He has been explained in detail by myself in the presence of my nurse Ms. Weinstein and patient's girlfriend. He said it can be fitted at home and he would like to take that risk. MANNY inhibitor was ordered but patient has history of dry cough. We will switch him to losartan. Physical Exam Narrative: EXAM NARRATIVE: GENERAL: Patient is alert, awake and oriented x3. NECK: No jugular vein distension. HEENT: No cyanosis. No icterus. No pallor. HEART: Regular S1 and S2. No murmur, rub or gallop. LUNGS: Decreased breath sound auscultate bilaterally. ABDOMEN: Soft, nontender and nondistended. Positive bowel sounds. No guarding, rebound or tenderness. CENTRAL NERVOUS SYSTEM: Grossly nonfocal. EXTREMITIES: Lower extremities without edema bilaterally. Discharge Data Data Completed and Pending: Pending at discharge Category Date Time Status CORD TIRE BUILDER request for service Routin e Exams 09/29/20 08:30 Taken Basic Metabolic P ike Stat Lab 10/01/20 14:08 Results Labs from last 24 hours 10/01/20 14:08 Sodium 136 Potassium 4.2 Chloride 100 Carbon Dioxide 24 Anion Gap 16.2 BUN Pending Creatinine 1.0 GFR Calculation Pending Glucose Pending Calculated Osmolal ity 287 Calcium 9.3 Vitals: Last Vital Signs Temp 98.0 F 10/01/20 13:33 Pulse 100 10/01/20 13:33 Resp 18 10/01/20 13:33 BP 118/80 10/01/20 13:33 Pulse Ox 95 10/01/20 13:33 Discharge Plan Discharge Patient Disposition: Home Condition: Stable Prescriptions: New atorvastatin 40 mg Tablet 40 mg PO BEDTIME Qty: 30 RF: 6 nitroglycerin 0.4 mg Tablet, Sublingual 0.4 mg sublingual Q5M PRN (Reason: Chest Pain) Qty: 30 RF: 3 Brilinta 90 mg Tablet 90 mg PO BID Qty: 60 RF: 6 Adult Aspirin Regimen 81 mg tablet,delayed release (DR/EC) 81 mg PO DAILY 90 Days Qty: 90 RF: 4 losartan 25 mg tablet 25 mg PO DAILY Qty: 30 RF: 4 Continued acetaminophen-codeine 300-30 mg tablet 1 tab PO Q4H PRN (Reason: pain) Qty: 30 RF: 0 doxycycline hyclate 100 mg tablet 100 mg PO BID 10 Days Qty: 20 RF: 0 metoprolol succinate 25 mg tablet extended release 24 hr 25 mg PO DAILY Qty: 30 RF: 3 potassium chloride 20 mEq tablet extended release 20 meq PO DAILY Qty: 30 RF: 1 furosemide 40 mg tablet 40 mg PO .COMPLEX Qty: 45 RF: 2 spironolactone 25 mg tablet 25 mg PO DAILY Qty: 30 RF: 2 Discharge Orders: Discharge Order (Routine); Ordered 10/01/20 Ordered By: dJ Hinds Other Ambulatory Orders: DME: Life Vest (Order) Location: None Selected Ordered By: Jd Hinds Referrals: Massiel Prado, KLAUDIA [Nurse Practitioner] - ([facility] will contact you to schedule an follow-up appointment with Massiel Prado in 1 week. If you haven't heard from them by Saturday. Please call ) Kelly Pearl MD [Physician] - ([facility] will contact you to schedule an follow-up appointment witmaurice Pearl in 1 month. If you haven't heard from them by Saturday. Please call ) Discharge Diet: Cardiac Discharge Activity: Increase activity as tolerated Patient Instructions: Nitroglycerin (By mouth), Lisinopril (By mouth), Ticagrelor (By mouth), Heart Healthy Diet, Heart Failure (DC), Left Heart Catheterization (DC), Right Heart Catheterization (DC), How to Stop Smoking (DC), Cardiac Rehabilitation (DC), CHF Stoplight, Post Angiogram Home Care Instructions Activity Restrictions/Additional Instructions: Follow-up with Dr. Pearl in 1 week. Keep a log of blood pressure pulse daily weight. If you gain more than 3 pound in 2 consecutive days please take extra water pill. Please inform Dr. Pearl or Dr. Hinds's office if you think your shortness of breath is getting worse. Please continue Brilinta 90 mg twice a day and aspirin 81 mg once a day without interruption. Discharge Attestations Time Spent in Discharge Care*: greater than 30 min Specific Discharge Activities: educating patient and educating and/or supporting family/caregiver Time Spent in Smoking Cessation: 3 to 10 minutes Quality Metrics Clinical Quality Measures During this hospital stay, did patient experience: None Coding Level of Care Code New Pt Acute Chg FW DC note Patient Type New History Comprehensive Exam Comprehensive Medical Decision Making Moderate Complexity Diagnoses Cardiomyopathy I25.5 Cardiomyopathy type: ischemic CHF (congestive heart failure), NYHA class III I50.22 Congestive heart failure chronicity: chronic Congestive heart failure type: systolic Time Spent (min) 30
[2020-10-01] MEDS: FUROsemide 10 mg/mL SDV 4mL 40 MG IVP (14:40)
--- NOTE | 2020-10-01 15:25 | PC.NURSE ---
life vest ordered and faxed to [facility] Pt decided to go home and get fitted with life vest as outpatient.
--- NOTE | 2020-10-01 16:30 | PC.NURSE ---
Discharge to home with significant other Instructed pt the importance of following -up with his appointments. Educated pt regarding cardiac rehab, to stop smoking, change his lifestyle and diet modifications such as low salt diet and take all his new and home meds as prescribed by his doctors. Discuss to pt regarding chf stoplight, new meds actions, dosing, timing and possible side effects. Discharge packet provided to pt. Joe escobar, cardiac stent cards and brochures regarding Wearable life vest from [employer] provided to pt. Pt verbalizes understanding and all questions from patient and his significant other were answered by his resident service coordinator and this nurse prior to discharge. Ushered via wheelchair.
== END 2020-10-01 16:29 | disposition home or self-care (01) ==
LOC: CSU 15:39
PROVIDERS: Admitting Provider Internal Medicine Cardiovascular Disease; PCP Nurse Practitioner Family; Visit Provider Internal Medicine Cardiovascular Disease
DX: I25.10 Atherosclerotic heart disease of native coronary artery without angina pectoris (principal); I25.5 Ischemic cardiomyopathy; I11.0 Hypertensive heart disease with heart failure; I50.22 Chronic systolic (congestive) heart failure; J44.9 Chronic obstructive pulmonary disease, unspecified; M19.90 Unspecified osteoarthritis, unspecified site; F17.210 Nicotine dependence, cigarettes, uncomplicated
CPT/HCPCS: 36415; 80048; 83880; 85025; 85347; 93460; 94660; C1725; C1751; C1769; C1874; C1887; C1894; C9600; C9601; G0378; J0153; J1644; J1940; J2250; J2704; J3010; J3246; J3490; J7030; Q0163; Q9967

== ENCOUNTER → 2020-10-06 16:10 | Outpatient (BNVA) | payer MEDICAID, SELFPAY | PROVIDERS: PCP Family Medicine; Visit Provider Nurse Practitioner Family | DX: I25.10 Atherosclerotic heart disease of native coronary artery without angina pectoris (principal) | CPT/HCPCS: 80048 ==

== ENCOUNTER → 2020-12-08 14:49 | Outpatient (BNVA) | payer MEDICAID, SELFPAY | PROVIDERS: PCP Family Medicine; Visit Provider Internal Medicine Cardiovascular Disease | DX: I50.22 Chronic systolic (congestive) heart failure (principal); E78.5 Hyperlipidemia, unspecified; I25.5 Ischemic cardiomyopathy; I50.9 Heart failure, unspecified; F17.200 Nicotine dependence, unspecified, uncomplicated; N52.9 Male erectile dysfunction, unspecified | CPT/HCPCS: 80053; 80061; 83721; 83735; 83880 ==

== ENCOUNTER → 2021-01-17 15:22 | Outpatient (BNVA) | payer MEDICAID, SELFPAY | PROVIDERS: PCP Family Medicine; Visit Provider Nurse Practitioner Family | DX: Z20.822 Contact with and (suspected) exposure to COVID-19 (principal); G25.81 Restless legs syndrome | CPT/HCPCS: 87635 ==

== ENCOUNTER 2021-03-17 15:08 | Outpatient (CLI) | payer MEDICAID, SELFPAY ==
--- NOTE | 2021-03-17 15:00 | USCV_ITS ---
Kemar Larios Age: 61 Gender: M : 1960 Exam Date: 03/17/2021 15:27 Ordering Phys: Kelly Pearl MD ([email or web address]) Technologist: Angela Dias Exam Location: [facility] [place] Indication: CHF, Assess LV function BP: 140 / 80 HR: 89 Rhythm: Sinus Technical Quality: Adequate MEASUREMENTS (Male / Female) Normal Values 2D ECHO LV Diastolic Diameter PLAX 3.7 cm 4.2 - 5.9 / 3.9 - 5.3 cm LV Systolic Diameter PLAX 2.7 cm IVS Diastolic Thickness 1.6 cm 0.6 - 1.0 / 0.6 - 0.9 cm IVS Systolic Thickness 1.8 cm LVPW Diastolic Thickness 1.4 cm 0.6 - 1.0 / 0.6 - 0.9 cm LVPW Systolic Thickness 1.8 cm LVOT Diameter 1.4 cm LV Ejection Fraction 2D Teich 50.9 % LV Ejection Fraction MOD 2C 54.8 % LV Ejection Fraction 2C AL 57.0 % LA Diameter 2.6 cm LA Width 2.6 cm LA Height 4.4 cm RA Width 2.9 cm RA Height 3.5 cm Aorta at Sinotubular Diameter 3.0 cm DOPPLER AV Peak Velocity 106.0 cm/s LVOT Peak Velocity 100.0 cm/s AV Area Cont Eq vti 1.4 cm squared AV Area Cont Eq pk 1.4 cm squared MV Peak Velocity 94.0 cm/s MV Area PHT 7.9 cm squared Mitral E to A Ratio 0.6 MV E' Velocity 32.5 cm/s Mitral E to MV E' Ratio 7.2 Mitral E to LV E' Lateral Ratio 6.0 Mitral E to LV E' Septal Ratio 9.1 TR Peak Velocity 87.0 cm/s TR Peak Gradient 3.0 mmHg Right Atrial Pressure 3.0 mmHg Pulmonary Artery Systolic Pressu 6.0 mmHg PV Peak Velocity 99.0 cm/s RV Acceleration Time 0.1 s RV Ejection Time 0.2 s RV AcT/ET 0.3 FINDINGS Left Ventricle Normal left ventricular cavity size and mildly increased left ventricular wall thickness. Mildly decreased left ventricular systolic function. Left ventricular ejection fraction is estimated at 40-45 %. Mild global hypokinesis. Moderate hypokinesis of septal and inferior anderson. Abnormal (paradoxical) septal motion consistent with postoperative status. Grade I diastolic dysfunction (abnormal relaxation filling pattern), normal to mildly elevated filling pressures. Right Ventricle Normal right ventricular size and systolic function. Right ventricular systolic pressure 6 mmHg. Right Atrium Normal right atrial size. Right atrial pressure estimated at 3 mm Hg. Left Atrium Mildly increased left atrial size. Mitral Valve Mildly thickened mitral valve. No mitral valve stenosis. Mild mitral valve regurgitation. Aortic Valve Mildly thickened probably aortic valve. No aortic valve stenosis. No aortic valve regurgitation. Tricuspid Valve Structurally normal tricuspid valve. Trace tricuspid valve regurgitation. Pulmonic Valve Pulmonic valve not well visualized. No pulmonary valve stenosis. No pulmonary valve regurgitation. Pericardium No pericardial effusion. Aorta Normal sized aortic root. Normal sized inferior vena cava with normal respiratory variation. CONCLUSIONS 1. Normal left ventricular cavity size and mildly increased left ventricular wall thickness. Mildly decreased left ventricular systolic function. Left ventricular ejection fraction is estimated at 40-45%. Mild global hypokinesis. Moderate hypokinesis of septal and inferior anderson. Abnormal (paradoxical) septal motion consistent with postoperative status. Grade I diastolic dysfunction (abnormal relaxation filling pattern), normal to mildly elevated filling pressures. 2. Normal right ventricular size and systolic function. 3. No significant valvular abnormality. 4. When compared to previous echocardiogram dated 08/08/2020, left ventricular systolic function seems to have improved. Kelly Pearl MD (Electronically Signed) Final Date: 20 March 2021 08:25 S
== END 2021-03-17 15:09 | disposition home or self-care (01) ==
LOC: RAD 15:10
PROVIDERS: PCP Nurse Practitioner Family; Visit Provider Internal Medicine Cardiovascular Disease
DX: I50.22 Chronic systolic (congestive) heart failure (principal)
CPT/HCPCS: 93306

== ENCOUNTER → 2021-04-14 10:23 | Outpatient (BNVA) | payer MEDICAID, SELFPAY ==
[2021-04-15 14:19] LABS: Free T4 Free Thyroxine 0.98 ng/dL (0.82-1.77); T3 Free 3.6 PG/ML (2.0-4.4)
== END ==
PROVIDERS: PCP Family Medicine; Visit Provider Internal Medicine Cardiovascular Disease
DX: I25.10 Atherosclerotic heart disease of native coronary artery without angina pectoris (principal); I25.5 Ischemic cardiomyopathy
CPT/HCPCS: 80048; 83036; 84439; 84443; 84481

== ENCOUNTER → 2021-06-08 00:01 | Outpatient (BNVA) | payer MEDICAID, SELFPAY | PROVIDERS: PCP Family Medicine; Visit Provider Family Medicine | DX: M25.531 Pain in right wrist (principal); E03.9 Hypothyroidism, unspecified; I50.22 Chronic systolic (congestive) heart failure; J44.9 Chronic obstructive pulmonary disease, unspecified | CPT/HCPCS: 80053; 84439; 84443; 84481; 85025 ==

== ENCOUNTER → 2021-06-09 12:11 | Outpatient (BNVA) | payer MEDICAID, SELFPAY | PROVIDERS: PCP Family Medicine; Visit Provider Family Medicine | DX: M25.531 Pain in right wrist (principal); S52.501D Unspecified fracture of the lower end of right radius, subsequent encounter for closed fracture with routine healing; X58.XXXD Exposure to other specified factors, subsequent encounter; Z98.890 Other specified postprocedural states | CPT/HCPCS: 73110 ==

== ENCOUNTER → 2021-10-18 13:55 | Outpatient (BNVA) | payer OTHER, MEDICAID, SELFPAY | PROVIDERS: PCP Family Medicine; Visit Provider Family Medicine | DX: G25.81 Restless legs syndrome (principal); E03.9 Hypothyroidism, unspecified; I50.22 Chronic systolic (congestive) heart failure; I10 Essential (primary) hypertension; R73.03 Prediabetes; E78.5 Hyperlipidemia, unspecified; M54.16 Radiculopathy, lumbar region; G47.33 Obstructive sleep apnea (adult) (pediatric); I25.10 Atherosclerotic heart disease of native coronary artery without angina pectoris | CPT/HCPCS: 80048; 80061; 83036; 84443 ==

== ENCOUNTER 2021-10-26 15:33 | Outpatient (CLI) | payer OTHER, MEDICAID, SELFPAY ==
--- NOTE | 2021-10-26 16:08 | XRR_ITS ---
PROCEDURE INFORMATION: Exam: XR Lumbosacral Spine Exam date and time: 10/26/2021 4:17 PM Age: 61 years old Clinical indication: Low back pain; Patient HX: Chronic lbp; Additional info: M54.16 - radiculopathy, lumbar region TECHNIQUE: Imaging protocol: XR of the lumbosacral spine. Views: 2 or 3 views. COMPARISON: No relevant prior studies available. FINDINGS: Bones/joints: Moderate to severe multilevel disc space narrowing productive degenerative endplate changes throughout the spine. Soft tissues: Unremarkable. Left kidney upper pole region 4.8 mm calcification may reflect a urinary calculus. Vasculature: Scattered atherosclerotic calcifications. XR/XR lumbar spine 2-3V* [id number] IMPRESSION: 1. Moderate to severe multilevel disc space narrowing productive degenerative endplate changes throughout the spine. 2. Scattered atherosclerotic calcifications. 3. Left kidney upper pole region 4.8 mm calcification may reflect a urinary calculus.
== END 2021-10-26 15:34 | disposition home or self-care (01) ==
LOC: RAD 15:43
PROVIDERS: PCP Family Medicine; Visit Provider Family Medicine
DX: M54.16 Radiculopathy, lumbar region (principal); M48.061 Spinal stenosis, lumbar region without neurogenic claudication; N28.89 Other specified disorders of kidney and ureter
CPT/HCPCS: 72100

== ENCOUNTER 2021-12-18 15:02 | Outpatient (CLI) | payer OTHER, MEDICAID, SELFPAY ==
--- NOTE | 2021-12-18 15:15 | MR_ITS ---
WS: [id number] MRI LUMBAR SPINE NONCONTRAST HISTORY: M48.062 - Spinal stenosis, lumbar region with neurogenic claudication. LEFT leg pain. COMPARISON: None available. TECHNIQUE: Sagittal and axial multisequence imaging is submitted. C5-6 disc osteophyte complex contacts the ventral cervical cord. Increase in thoracic kyphosis. Mild LEFT curvature lumbar spine with increase in lordosis. 2 mm retrolisthesis of L2, L3 and L4. L5 anterolisthesis by 2 mm. Disc spaces are narrowed and desiccated throughout, most significant at L2-3 and L3-4. Moderate marro w edema in L3 and L4. Small amount of marrow edema in the posterior inferior L2 vertebral body. No fr actures or loss of height. Conus terminates normally at L1. L1-L2: Normal. L2-L3: Moderate diffuse annular disc bulging. No focal disc protrusion. Disc encroaches upon the vent ral thecal sac, subarticular recesses and into the foramina. Mild LEFT foraminal stenosis. Moderate b ilateral subarticular recess and RIGHT foraminal stenosis. Encroachment upon the traversing L3 nerve roots by disc and facet disease. There is only mild ligamentum flavum hypertrophy and facet arthritis . L3-L4: Diffuse osteophytic ridging and annular disc bulge. Small RIGHT paracentral disc protrusion. M ild ligamentum flavum hypertrophy and facet arthritis. Disc and osteophyte encroachment most signific ant into the RIGHT foramen. Moderate bilateral foraminal stenosis but greater on the RIGHT. Disc and osteophyte contact most significant involving the RIGHT L3 and L4 nerve roots. Mild central stenosis and subarticular recess stenosis. L4-L5: Mild annular disc bulge with a focal central and LEFT foraminal disc protrusion. Mild contact and displacement of the thecal sac. Moderate encroachment into the LEFT foramen by disc and osteophyt e. Mild to moderate bilateral foraminal stenosis. Slightly greater stenosis LEFT subarticular recess. Mild facet arthritis. L5-S1: Diffuse annular disc bulge. Very slight disc contact on the RIGHT S1 nerve root with no displa cement. Diffuse osteophytic ridging. Moderate ligamentum flavum and facet arthritis resulting in bila teral foraminal stenosis. There is disc and osteophyte contacting the exiting L5 nerve roots bilatera lly at the RIGHT S1 nerve root. Slightly greater L5 nerve root contact and narrowing of the LEFT fora men. Paravertebral soft tissues are negative. MR/MR lumbar spine wo con* [id number] IMPRESSION: 1. Multilevel areas of facet arthritis, disc and osteophyte disease resulting in stenosis. 2. Moderate bilateral foraminal stenosis at L3-4, RIGHT greater than LEFT with disc osteophyte contact on the RIGHT L3 and L4 nerve roots. 3. Mild central and subarticular recess stenosis at L3-4 and facet joint arthr itis. 4. Focal central LEFT foraminal disc protrusions at L4-5. Moderate encroachmen t into the LEFT foramen by disc and osteophyte at L4-5. There is mild to modera te bilateral foraminal stenosis, moderate LEFT subarticular recess stenosis at L4-5. 5. Moderate bilateral foraminal stenosis L5-S1 due to disc and osteophyte and facet arthritis. Disc and osteophyte contact on the exiting L5 nerve roots and the RIGHT S1 nerve root. Slightly greater stenosis and contact on the exiting L EFT L5 nerve root. 6. Moderate bilateral subarticular recess stenosis and RIGHT foraminal stenosi s at L2-3 with mild LEFT foraminal stenosis. Mild facet arthritis. 7. Reactive marrow edema in the vertebral bodies, L1, L3 and L4. 8. Increase in the lumbar lordosis.
== END 2021-12-18 15:03 | disposition home or self-care (01) ==
LOC: RAD 15:03
PROVIDERS: PCP Family Medicine; Visit Provider Anesthesiology Pain Medicine
DX: M48.062 Spinal stenosis, lumbar region with neurogenic claudication (principal); M51.26 Other intervertebral disc displacement, lumbar region; M48.07 Spinal stenosis, lumbosacral region
CPT/HCPCS: 72148

== ENCOUNTER 2022-04-12 14:18 | Outpatient (CLI) | payer OTHER, MEDICAID, SELFPAY ==
--- NOTE | 2022-04-12 15:00 | USCV_ITS ---
Kemar Larios Age: 62 Gender: M : 1960 Exam Date: 04/12/2022 14:48 Ordering Phys: Kelly Pearl MD ([email or web address]) Technologist: LEÓN Exam Location: [facility] [place] Indication: CHRONIC HEART FAILURE BP: 146 / 78 HR: 66 Rhythm: Sinus Technical Quality: Adequate MEASUREMENTS (Male / Female) Normal Values 2D ECHO LV Diastolic Diameter PLAX 4.4 cm 4.2 - 5.9 / 3.9 - 5.3 cm LV Systolic Diameter PLAX 3.1 cm IVS Diastolic Thickness 1.5 cm 0.6 - 1.0 / 0.6 - 0.9 cm IVS Systolic Thickness 1.8 cm LVPW Diastolic Thickness 1.7 cm 0.6 - 1.0 / 0.6 - 0.9 cm LVPW Systolic Thickness 1.9 cm LVOT Diameter 2.0 cm LV Ejection Fraction 2D Teich 56.3 % LV Ejection Fraction MOD 2C 66.8 % LV Ejection Fraction 2C AL 66.3 % LA Diameter 3.6 cm LA Width 3.4 cm LA Height 4.8 cm RA Width 3.2 cm RA Height 4.9 cm Aorta at Sinotubular Diameter 2.7 cm IVC Diameter 2.1 cm M-MODE Aortic Annulus Diameter 3.5 cm LA Ao Ratio MM 0.9 MV E Point Septal Separation 0.7 cm DOPPLER AV Peak Velocity 138.7 cm/s LVOT Peak Velocity 107.0 cm/s AV Area Cont Eq vti 2.8 cm squared AV Area Cont Eq pk 2.5 cm squared MV Peak Velocity 106.0 cm/s MV Area PHT 3.5 cm squared Mitral E to A Ratio 1.1 MV E' Velocity 51.0 cm/s Mitral E to MV E' Ratio 9.3 Mitral E to LV E' Lateral Ratio 8.9 Mitral E to LV E' Septal Ratio 9.8 TR Peak Velocity 162.7 cm/s TR Peak Gradient 10.6 mmHg TR Mean Velocity 124.0 cm/s TR Mean Gradient 7.0 mmHg TR Velocity Time Integral 45.5 cm TV Peak E Velocity 41.0 cm/s Right Atrial Pressure 3.0 mmHg Pulmonary Artery Systolic Pressu 13.6 mmHg PV Peak Velocity 118.0 cm/s RV Acceleration Time 0.1 s RV Ejection Time 0.3 s RV AcT/ET 0.4 FINDINGS Left Ventricle Normal left ventricular size, systolic function and mildly increased wall thickness, with no regional wall motion abnormalities. Mild concentric left ventricle hypertrophy. Left ventricular ejection fraction is estimated at 60%. Normal diastolic function. Right Ventricle Normal right ventricular size and systolic function. RVSP could not be calculated due to incomplete tricuspid regurgitation velocity profile. Right Atrium Normal right atrial size. Right atrial pressure estimated at 3 mmHg. Left Atrium Normal left atrial size. Mitral Valve Structurally normal mitral valve. No mitral valve stenosis. No mitral valve regurgitation. Aortic Valve Mildly thickened probably trileaflet aortic valve. No aortic valve stenosis. No aortic valve regurgitation. Tricuspid Valve Structurally normal tricuspid valve. Trace tricuspid valve regurgitation. Pulmonic Valve Structurally normal pulmonic valve. No pulmonary valve stenosis. No significant pulmonary valve regurgitation. Pericardium No pericardial effusion. Aorta Normal size aortic root and proximal ascending aorta. IVC Normal IVC dimension with >50% respiratory change of the inferior vena cava. CONCLUSIONS 1. Normal left ventricular size, systolic function and mildly increased wall thickness, with no regional wall motion abnormalities. Mild concentric left ventricular hypertrophy. Left ventricular ejection fraction is estimated at 60 %. Normal diastolic function. 2. Normal right ventricular size and systolic function. 3. No significant valvular abnormality. 4. When compared to previous study dated 03/17/2021, left ankle systolic function seems to have improved. Kelly Pearl MD (Electronically Signed) Final Date: 18 April 2022 10:15 S
== END 2022-04-12 14:19 | disposition home or self-care (01) ==
LOC: RAD 14:20
PROVIDERS: PCP Family Medicine; Visit Provider Internal Medicine Cardiovascular Disease
DX: I25.10 Atherosclerotic heart disease of native coronary artery without angina pectoris (principal); I25.5 Ischemic cardiomyopathy; I50.9 Heart failure, unspecified; R06.02 Shortness of breath
CPT/HCPCS: 93306

== ENCOUNTER → 2022-04-19 11:27 | Outpatient (BNVA) | payer OTHER, MEDICAID, SELFPAY | PROVIDERS: PCP Family Medicine; Visit Provider Family Medicine | DX: E03.9 Hypothyroidism, unspecified (principal); G25.81 Restless legs syndrome; I50.22 Chronic systolic (congestive) heart failure; I10 Essential (primary) hypertension; R53.83 Other fatigue; E11.9 Type 2 diabetes mellitus without complications; Z68.36 Body mass index [BMI] 36.0-36.9, adult; G47.33 Obstructive sleep apnea (adult) (pediatric); M51.16 Intervertebral disc disorders with radiculopathy, lumbar region; E11.42 Type 2 diabetes mellitus with diabetic polyneuropathy; R53.82 Chronic fatigue, unspecified; G47.26 Circadian rhythm sleep disorder, shift work type; E78.5 Hyperlipidemia, unspecified | CPT/HCPCS: 80053; 82607; 82652; 83036; 84443 ==

== ENCOUNTER → 2022-07-05 14:53 | Outpatient (BNVA) | payer OTHER, MEDICAID, SELFPAY | PROVIDERS: PCP Family Medicine; Visit Provider Family Medicine | DX: E03.9 Hypothyroidism, unspecified (principal); E11.9 Type 2 diabetes mellitus without complications; G25.81 Restless legs syndrome; Z23 Encounter for immunization | CPT/HCPCS: 83036; 83540; 84439; 84443; 84481 ==

== ENCOUNTER → 2022-08-16 15:02 | Outpatient (BNVA) | payer OTHER, MEDICAID, SELFPAY | PROVIDERS: PCP Family Medicine; Referring Provider Family Medicine; Visit Provider Orthopaedic Surgery | DX: M47.816 Spondylosis without myelopathy or radiculopathy, lumbar region (principal) | CPT/HCPCS: 72110 ==

== ENCOUNTER 2022-08-23 06:00 | Outpatient (CLI) | payer OTHER, MEDICAID, SELFPAY | END 2022-08-23 06:01 | disposition home or self-care (01) | LOC: RT 09-02 22:11 | PROVIDERS: PCP Family Medicine; Visit Provider Internal Medicine Pulmonary Disease | DX: G47.33 Obstructive sleep apnea (adult) (pediatric) (principal); F17.200 Nicotine dependence, unspecified, uncomplicated | CPT/HCPCS: 94010; 94726; 94729 ==

== ENCOUNTER 2022-08-23 13:06 | Outpatient (CLI) | payer OTHER, MEDICAID, SELFPAY ==
--- NOTE | 2022-08-23 15:00 | CT_ITS ---
WS: [id number] LDCT LUNG CANCER SCREENING HISTORY: lung screening TECHNIQUE: Axial imaging performed from the apices to 1 cm below the costophrenic angles. Coronal and sagittal reformats are submitted with axial MIP series. All CT scans at [facility] use at least one of these dose optimization techniques: automated exposure control; mA and/or kV adjustment per patient size (includes targeted exams where dose is matched to clinical indication); or iterativ e reconstruction. DLP: 76.04 mGy.cm DIvol: Mean CTDIvol: 1.60 (mGy) COMPARISON: 06/18/2020 Diagnostic quality: Satisfactory Lung Nodules: No pulmonary mass or nodule. No pneumonia. Benign granuloma RIGHT upper lobe. No endobr onchial lesions. Lungs: Hyperexpanded with emphysema. Heart: Normal size heart. No pericardial effusion. Very dense calcification involving the LEFT anteri or descending coronary artery. Other findings: Small hiatal hernia. Prior cholecystectomy. No adrenal mass. Deformed scapula is prob ably from prior trauma. CT/CT lung screening [id number] IMPRESSION: LUNG-RADS: 1S-Negative with Significant Findings FOLLOW UP: 12 Month: Continue annual screening with LDCT OTHER FINDINGS (S MODIFIER): Extensive coronary artery calcifications in the LE FT anterior descending coronary.
== END 2022-08-23 13:07 | disposition home or self-care (01) ==
PROVIDERS: PCP Family Medicine; Visit Provider Internal Medicine Pulmonary Disease
DX: Z12.2 Encounter for screening for malignant neoplasm of respiratory organs (principal); F17.210 Nicotine dependence, cigarettes, uncomplicated; G47.33 Obstructive sleep apnea (adult) (pediatric); I50.9 Heart failure, unspecified
CPT/HCPCS: 71271; 94618

== ENCOUNTER 2022-09-28 13:31 | Outpatient (CLI) | payer OTHER, MEDICAID, SELFPAY | END 2022-09-28 13:32 | disposition home or self-care (01) | LOC: RT 10-11 12:01 | PROVIDERS: PCP Family Medicine; Visit Provider Orthopaedic Surgery | DX: Z13.6 Encounter for screening for cardiovascular disorders (principal); I21.9 Acute myocardial infarction, unspecified | CPT/HCPCS: 93005 ==

== ENCOUNTER 2022-10-05 09:59 | Day surgery (SDC) | payer OTHER, MEDICAID, SELFPAY ==
--- NOTE | 2022-09-28 12:01 | ANES.PREANE2 ---
Pre-Anesthetic Assessment Height/Weight: Height 1.78 m Preop Diagnosis: New onset of heart failure. 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 1. Right heart cath #1 RA 17 mmHg#2 RV 37/7 mmHg#3 PA mean 29 mmHg#4 PCWPCardiac output by Ismael 3 L/min, cardiac index 2.0, no stepup noted. ? 2. FFR: After equalizing the distal and proximal pressure of FFR wire proximal to the lesion, mid LAD lesion was crossed with FFR wire. IV adenosine at rate of 140 mcg/min was started. Patient did not compliant of any symptoms, at then end of two minutes FFR was recorded as 0.72, which is? significant Indication for left heart cath: Cardiomyopathy new onset, worsening of heart failure symptoms. ? 3. There is severe coronary artery disease with two vessel disease. ? 4. Mid Left Anterior Descending Coronary Artery was treated with Drug Eluting Stent and Balloon. ? 5. Proximal Right Coronary Artery was treated with Drug Eluting Stent and Balloon. ? 6. Mid Right Coronary Artery was treated with two Balloon and Drug Eluting Stent. ? 7. Distal Right Coronary Artery was treated with three Balloon and two Drug Eluting Stent. 2021 echo ?CONCLUSIONS ?1. Normal left ventricular size, systolic function and mildly ?increased wall thickness, with no regional wall motion ?abnormalities.? Mild concentric left ventricular hypertrophy.? ?Left ventricular ejection fraction is estimated at 60 %. Normal ?diastolic function. ?2. Normal right ventricular size and systolic function. ?3. No significant valvular abnormality. ?4. When compared to previous study dated 03/17/2021, left ankle ?systolic function seems to have improved. Metabolic Diabetes Mellitus, Hyperlipidemia, Morbid Obesity and Thyroid Disease Anesthetic Plan ASA status: 4 Anesthesia: General Risk of > 500 ml blood loss (7ml/kg in children): No Medications/Allergies Home Medications Medication Instructions Recorded Confirmed Last Taken Type aspirin 81 mg tablet,delayed 81 mg PO DAILY 90 days #90 tabs 10/01/20 09/07/22 Unknown Rx release (Adult Aspirin Regimen) nitroglycerin 0.4 mg sublingual 0.4 mg sublingual Q5M PRN Chest 10/01/20 09/07/22 Unknown Rx tablet Pain #30 tabs sildenafil 25 mg tablet 25 mg PO DAILY PRN sexual activity 04/27/21 09/07/22 Unknown Rx 30 days #30 tabs cyclobenzaprine 10 mg tablet 10 mg PO TID PRN muscle spasm #60 12/14/21 09/07/22 Unknown Rx tabs multivitamin 1 tab PO DAILY 02/08/22 09/07/22 Unknown History ticagrelor 60 mg tablet 60 mg PO BID #180 tabs 02/08/22 09/07/22 Unknown Rx losartan 50 mg tablet 50 mg PO DAILY #90 tabs 04/16/22 09/07/22 Unknown Rx atorvastatin 40 mg tablet 40 mg PO BEDTIME #90 tabs 04/19/22 09/07/22 Unknown Rx furosemide 40 mg tablet 40 mg PO DAILY #90 tabs 04/19/22 09/07/22 Unknown Rx gabapentin 800 mg tablet 800 mg PO BID 90 days #180 tabs 04/19/22 09/07/22 Unknown Rx metoprolol succinate 50 mg 50 mg PO DAILY 90 days #90 tabs 04/19/22 09/07/22 Unknown Rx tablet,extended release 24 hr miscellaneous medical supply See Rx Instructions miscellaneous 04/19/22 09/07/22 Unknown Rx .COMPLEX #1 ea ropinirole 1 mg tablet See Rx Instructions .Route 04/19/22 09/07/22 Unknown Rx .COMPLEX 90 days #180 tabs eplerenone 25 mg tablet 25 mg PO DAILY #90 tabs 06/29/22 09/07/22 Unknown Rx metformin 500 mg tablet 500 mg PO DAILY 90 days #90 tabs 07/05/22 09/07/22 Unknown Rx levothyroxine 100 mcg capsule 100 mcg PO DAILY 90 days #90 caps 07/22/22 09/07/22 Unknown Rx tiotropium bromide 18 mcg capsule 1 cap inhalation DAILY #30 07/28/22 09/07/22 Unknown Rx with inhalation device (Spiriva inhalations with HandiHaler) ketoconazole 2 % shampoo 1 applic topical .COMPLEX #120 mL 09/08/22 09/08/22 Unknown Rx triamcinolone acetonide 0.1 % 1 applic topical BID PRN rash #80 09/08/22 09/08/22 Unknown Rx topical ointment grams Allergies Allergy/AdvReac Type Severity Reaction Status Date / Time lisinopril AdvReac ADR-Cough Verified 09/28/22 13:14 PFS Anesthesia Medical History Atherosclerosis of coronary artery Cardiomyopathy CHF (congestive heart failure), NYHA class III Dyslipidemia Erectile dysfunction Smoker Surgical History History of surgery on right wrist Hx of cholecystectomy Hx of hemorrhoidectomy Family History Other Cancer Diabetes Denies family history of Stroke Social History Smoking and tobacco status: current every day smoker cigarettes Packs smoked per day: 1 Years cigarettes smoked: 47 [ Other cigarette details: Started at age 15] Alcohol intake: current Alcohol intake frequency: holidays/special occasions only Data Anesthesia Cardiac Studies: Echocardiogram 04/12/22 Echocardiogram Ultrasound 08/08/20
[2022-09-28 13:26] VITALS: BMI 35.4
--- NOTE | 2022-09-28 13:31 | ECG_ITS ---
[facility] Test Date: 2022-09-28 Pat Name: Kemar Larios Department: Room: Gender: Male [employer]: : 1960 Requested By: Shonda Zavala Order Number: [id number] Braxton MD: Miquel Cespedes M.D. Measurements Intervals [place] Rate: 66 P: 163 [place]: 184 QRS: 203 QRSD: 118 T: 167 QT: 406 QTc: 427 Interpretive Statements ECTOPIC ATRIAL RHYTHM POSSIBLE RIGHT VENTRICULAR HYPERTROPHY [SOME/ALL OF: PROMINENT R IN V1, LATE TRANSITION, RAD, TOYIN, SSS] INFERIOR MYOCARDIAL INFARCTION , PROBABLY OLD [40+ ms Q WAVE AND/OR ST/T ABNORMALITY IN II/aVF] Compared to ECG 06/18/2020 10:37:10 Ectopic atrial rhythm now present Myocardial infarct finding now present Sinus tachycardia no longer present T-wave abnormality no longer present Electronically Signed On 09-28-2022 15:54:38 CDT by Miquel Cespedes M.D. [email or web address]
[2022-09-28 14:17] LABS: Basophils # 0.1 10^3/uL (0.0-0.1); Basophils % 0.6 %; Eosinophils # 0.4 10^3/uL (0.0-0.8); Eosinophils % 3.3 %; Hematocrit 44.6 % (42.0-52.0); Hemoglobin 14.4 g/dL (11.7-16.6); Lymphocytes # 3.5 10^3/uL (0.8-4.8); Lymphocytes % 32.3 %; Mean Corpuscular HGB Conc 32.3 g/dL (30.0-36.0); Mean Corpuscular Hemoglobin 27.1 pg (28.0-34.0); Mean Platelet Volume 9.9 fL (7.4-10.4); Monocytes # 0.7 10^3/uL (0.2-0.9); Monocytes % 6.4 %; Neutrophils # 6.25 10^3/uL (1.8-7.7); Neutrophils % 56.9 %; Nucleated Red Blood Cells % 0 %; Platelet Count 326 10^3/cmm (130-400); Red Blood Count 5.31 10^6/uL (4.1-5.3); Red Cell Distribution Width 13.6 % (12.1-15.1)
[2022-09-28 14:42] LABS: Blood Urea Nitrogen 17 mg/dL (8-23); Calcium 9.3 mg/dL (8.5-10.5); Carbon Dioxide 25 mmol/L (22-29); Chloride 105 mmol/L (98-107); Glucose 107 mg/dL (65-115); Osmolality Calculated 294 mOsm/kg (285-295); Sodium 141 mmol/L (136-145)
[2022-10-05 10:25] VITALS: BP 145/80; PULSE 71; RESP 18; TEMP 36.8; O2SAT 96
[2022-10-05 10:38] LABS: Glucose Point of Care 133 mg/dL (70-110)
[2022-10-05] MEDS: sodium chloride 0.9% 1,000 ML 30 ML IV (10:49)
--- NOTE | 2022-10-05 12:50 | PM.HP ---
Providers/Chief Complaint Primary Care Provider: Demetra Kelly MD Chief Complaint: L3/4,L4/5 Mis Decompression [id number] History of Present Illness Kemar Larios is a 62 year old male He reports lower back pain that radiates into his BLE. He states his left leg is worse. He reports numbness and tingling sensations in his bilateral feet. He states he has tried [facility] at [facility] by Dr. Hoskins in the past, with relief for only 2 hours. He has an MRI from 2021, and is here today to go over results and further treatment plan. Chief Complaint: low back pain Onset: 2014 Duration: constant Characteristics: Severity: 09/07 Location: lumbar Radiating symptoms: radiates into BLE, LEFT worse Aggravating factors: walking, sitting, standing for long periods at a time Alleviating factors: one Neuro deficits: denies numbness, tingling, weakness, incontinence of bowel/bladder, saddle anesthesia. Prior tx: Left L3/4 L4/5 MBB, Right L3/4 L4/[address] [facility] Review of Systems Const: Reports: fatigue; Denies: fever(s), chills or body aches Eyes: Denies: change in vision ENMT: Denies: throat pain or odynophagia Card: Reports: swelling of feet/ankles and dyspnea on exertion; Denies: chest pain, palpitations, irregular heart rhythm, lightheadedness or orthopnea Resp: Reports: dyspnea and wheezing; Denies: productive cough, non-productive cough, pain on inspiration or chest congestion GI: Reports: heartburn; Denies: abdominal pain, nausea or vomiting : Denies: flank pain Musc: Reports: joint pain and joint stiffness; Denies: neck pain or back pain Skin/Breast: Denies: rash or pruritus Neuro: Reports: headache(s) and vertigo; Denies: numbness in extremities, weakness in extremities or dizziness Psych: Denies: anxiety or depression Endo: Denies: polyuria or polydipsia Rommel/Lymph: Reports: easy bruising and easy bleeding All/Imm: Reports: seasonal rhinorrhea; Denies: urticaria, throat swelling, tongue swelling, facial swelling, acute wheezing, itchy eyes or food intolerance Medications/Allergies Home Medications Medication Instructions Recorded Confirmed Last Taken Type aspirin 81 mg tablet,delayed 81 mg PO DAILY 90 days #90 tabs 10/01/20 09/28/22 09/29/22 Rx release (Adult Aspirin Regimen) nitroglycerin 0.4 mg sublingual 0.4 mg sublingual Q5M PRN Chest 10/01/20 09/28/22 Unknown Rx tablet Pain #30 tabs sildenafil 25 mg tablet 25 mg PO DAILY PRN sexual activity 04/27/21 09/28/22 Unknown Rx 30 days #30 tabs multivitamin 1 tab PO DAILY 02/08/22 09/28/22 10/04/22 History ticagrelor 60 mg tablet 60 mg PO BID #180 tabs 02/08/22 09/28/22 09/29/22 Rx losartan 50 mg tablet 50 mg PO DAILY #90 tabs 04/16/22 09/28/22 10/04/22 Rx atorvastatin 40 mg tablet 40 mg PO BEDTIME #90 tabs 04/19/22 09/28/22 10/04/22 Rx furosemide 40 mg tablet 40 mg PO DAILY #90 tabs 04/19/22 09/28/22 10/04/22 Rx metoprolol succinate 50 mg 50 mg PO DAILY 90 days #90 tabs 04/19/22 09/28/22 10/04/22 Rx tablet,extended release 24 hr eplerenone 25 mg tablet 25 mg PO DAILY #90 tabs 06/29/22 09/28/22 10/04/22 Rx metformin 500 mg tablet 500 mg PO DAILY 90 days #90 tabs 07/05/22 09/28/22 10/04/22 Rx gabapentin 800 mg tablet 1,600 mg PO BEDTIME 09/28/22 09/28/22 10/04/22 History ropinirole 1 mg tablet 1 mg PO BID 09/28/22 09/28/22 10/04/22 History tiotropium bromide 18 mcg capsule 1 cap inhalation DAILY 09/28/22 09/28/22 09/27/22 History with inhalation device (Spiriva with HandiHaler) Allergies Allergy/AdvReac Type Severity Reaction Status Date / Time lisinopril AdvReac ADR-Cough Verified 09/28/22 13:14 PFSH Acute PFSH: Medical History Atherosclerosis of coronary artery Cardiomyopathy CHF (congestive heart failure), NYHA class III Dyslipidemia Erectile dysfunction Smoker Surgical History History of surgery on right wrist Hx of cholecystectomy Hx of hemorrhoidectomy Family History Other Cancer Diabetes Denies family history of Stroke Social History Smoking and tobacco status: current every day smoker cigarettes Packs smoked per day: 1 Years cigarettes smoked: 47 [ Other cigarette details: Started at age 15] Alcohol intake: current Alcohol intake frequency: holidays/special occasions only Vitals/I&O/Wt Last Vital Signs Temp 98.2 F 10/05/22 10:25 Pulse 71 10/05/22 10:25 Resp 18 10/05/22 10:25 BP 145/80 10/05/22 10:25 Pulse Ox 96 10/05/22 10:25 O2 Del Method 10/05/22 10:30 Physical Exam Narrative: CONSTITUTIONAL: This is a normal patient in no acute distress. ?PSYCH: The patient is oriented to person, place and time. ?SKIN: The skin is of normal color and texture. ?NEURO: Patient is neurovascularly intact. Data 09/28/22 14:00 09/28/22 14:00 A&P Assessment and plan (1) Lumbar stenosis with neurogenic claudication: L3/4 and L4/5 MIS decompression Attestations Medical Necessity Statement*: failed conservative tx Coding Level of Care Code Acute Code for Chg Fwd Diagnoses Lumbar stenosis with neurogenic claudication M48.062
--- NOTE | 2022-10-05 13:04 | P.ANESUD_ITS ---
Pre-Anesthetic Update Pre-Anesthetic Assessment: Date of Surgery/Procedure: 10/05/22 Preop [place]: Lumbar stenosis Proposed Procedure: Operation Date: 10/05/22 11:30 Proposed Procedures p Lumbar Spine Decompression: L3/4 L4/5 [id number],09594(Not Applicable) - Luis Alfredo Hill, DO Any changes to Pre-Anesthetic Assessment?: No Last Intake: Intake Last Liquid Date 10/05/22 Last Liquid Time 09:00 Last Solid Date 10/04/22 Last Solid Time 21:00 Vitals: Temperature 98.2 F 10/05/22 10:25 Temperature Source Temporal Artery S can 10/05/22 10:25 Pulse Rate 71 10/05/22 10:25 Respiratory Rate 18 10/05/22 10:25 Blood Pressure 145/80 10/05/22 10:25 Blood Pressure Prudence n 101 10/05/22 10:25 Pulse Oximetry 96 10/05/22 10:25 Oxygen Delivery Me thod 10/05/22 10:30 Cardiac Studies: Echocardiogram 04/12/22 Echocardiogram Ultrasound 08/08/20
[2022-10-05] MEDS: ceFAZolin 2,000 MG in sodium chloride 0.9% (plus) 50 ML 100 MG IV (13:41)
[2022-10-05] MEDS: lidocaine-epi 1% 20 mL INJ INJECTION (14:21)
--- NOTE | 2022-10-05 15:01 | XR_ITS ---
WS: [id number] XR lumbar spine 1V [id number] REASON FOR EXAM: OR PICS FINDINGS: Intraoperative image demonstrating the surgical instrument overlying the left L4-L5 disc space. XR/XR lumbar spine 1V [id number] IMPRESSION: Lumbar localization in surgery as above.
[2022-10-05 15:19] VITALS: BP 162/81; PULSE 73; RESP 16; TEMP 36.1; O2SAT 97
--- NOTE | 2022-10-05 15:24 | ANES.PREANE2 ---
Pre-Anesthetic Assessment Height/Weight: Height 1.78 m Weight 112.037 kg Temp Pulse Resp BP Pulse Ox O2 Del Method O2 Flow Rate 97.0 F L 73 16 162/81 97 6 10/05/22 15:19 10/05/22 15:19 10/05/22 15:19 10/05/22 15:19 10/05/22 15:19 10/05/22 15:19 10/05/22 15:19 Preop Diagnosis: Lumbar stenosis Operation Date: 10/05/22 11:30 Proposed Procedures p Lumbar Spine Decompression: L3/4 L4/5 06381,13344(Not Applicable) - Luis Alfredo Hill DO Last intake: Intake Last Liquid Date 10/05/22 Last Liquid Time 09:00 Last Solid Date 10/04/22 Last Solid Time 21:00 Medications/Allergies Home Medications Medication Instructions Recorded Confirmed Last Taken Type aspirin 81 mg tablet,delayed 81 mg PO DAILY 90 days #90 tabs 10/01/20 09/28/22 09/29/22 Rx release (Adult Aspirin Regimen) nitroglycerin 0.4 mg sublingual 0.4 mg sublingual Q5M PRN Chest 10/01/20 09/28/22 Unknown Rx tablet Pain #30 tabs sildenafil 25 mg tablet 25 mg PO DAILY PRN sexual activity 04/27/21 09/28/22 Unknown Rx 30 days #30 tabs multivitamin 1 tab PO DAILY 02/08/22 09/28/22 10/04/22 History ticagrelor 60 mg tablet 60 mg PO BID #180 tabs 02/08/22 09/28/22 09/29/22 Rx losartan 50 mg tablet 50 mg PO DAILY #90 tabs 04/16/22 09/28/22 10/04/22 Rx atorvastatin 40 mg tablet 40 mg PO BEDTIME #90 tabs 04/19/22 09/28/22 10/04/22 Rx furosemide 40 mg tablet 40 mg PO DAILY #90 tabs 04/19/22 09/28/22 10/04/22 Rx metoprolol succinate 50 mg 50 mg PO DAILY 90 days #90 tabs 04/19/22 09/28/22 10/04/22 Rx tablet,extended release 24 hr eplerenone 25 mg tablet 25 mg PO DAILY #90 tabs 06/29/22 09/28/22 10/04/22 Rx metformin 500 mg tablet 500 mg PO DAILY 90 days #90 tabs 07/05/22 09/28/22 10/04/22 Rx gabapentin 800 mg tablet 1,600 mg PO BEDTIME 09/28/22 09/28/22 10/04/22 History ropinirole 1 mg tablet 1 mg PO BID 09/28/22 09/28/22 10/04/22 History tiotropium bromide 18 mcg capsule 1 cap inhalation DAILY 09/28/22 09/28/22 09/27/22 History with inhalation device (Spiriva with HandiHaler) Allergies Allergy/AdvReac Type Severity Reaction Status Date / Time lisinopril AdvReac ADR-Cough Verified 09/28/22 13:14 Current Medications Generic Name Dose Route Start Last Admin Trade Name Freq PRN Reason Stop Dose Admin Sodium Chloride 1,000 mls @ 30 mls/hr 10/05/22 10:00 10/05/22 10:49 Sodium Chloride 0.9% IV 10/06/22 09:59 30 mls/hr .Q24H MABEL Administration PFSH Anesthesia Medical History Atherosclerosis of coronary artery Cardiomyopathy CHF (congestive heart failure), NYHA class III Dyslipidemia Erectile dysfunction Smoker Surgical History History of surgery on right wrist Hx of cholecystectomy Hx of hemorrhoidectomy Family History Other Cancer Diabetes Denies family history of Stroke Social History Smoking and tobacco status: current every day smoker cigarettes Packs smoked per day: 1 Years cigarettes smoked: 47 [ Other cigarette details: Started at age 15] Alcohol intake: current Alcohol intake frequency: holidays/special occasions only Data Anesthesia 09/28/22 14:00 09/28/22 14:00 Cardiac Studies: Echocardiogram 04/12/22 Echocardiogram Ultrasound 08/08/20
[2022-10-05 15:25] VITALS: BP 165/89; PULSE 70; RESP 16; O2SAT 96
--- NOTE | 2022-10-05 15:25 | ANE.PACU2 ---
Inpatient post-anesthesia follow up: Vital signs: Temperature 97.0 F Pulse Rate 73 Respiratory Rate 16 Blood Pressure 162/81 Pulse Oximetry 97 Oxygen Delivery Me thod Simple Mask Oxygen Flow Rate 6 Fraction of Inspir ed Oxygen Hydration adequate: Yes Nausea and vomiting: No Pain level: 3 Mental status: Baseline
[2022-10-05 15:30] VITALS: BP 152/84; PULSE 73; RESP 14; O2SAT 94
--- NOTE | 2022-10-05 15:34 | P.OP_ITS ---
Operative Report Date of procedure: October 05, 2022 Pre-op diagnosis: Preop Diagnosis Lumbar stenosis Post-op diagnosis: same Procedure done: 1. L3-4 laminectomy with partial facetectomy 2. L4-5 laminectomy with partial facetectomy Surgeon: Luis Alfredo Hill Resident In Diagnostic Radiology: none Estimated blood loss (mL): 20 Procedure: 1. L3-4 laminectomy with partial facetectomy 2. L4-5 laminectomy with partial facetectomy Patient is brought to the operative suite. After undergoing anesthesia they are placed in the prone position. All areas of impingement are well padded. Patient is then prepped and draped in the normal sterile fashion. A skin incision is made over the L3-4 level. This is confirmed under c-arm guidance. A series of dilators are passed and the tubular retractor is docked on the L 4 lamina. A bovie is used to clear the soft tissue off the lamina and the L 3/4 facet joint. A high speed abraham is then used to perform the laminec deirdre and take down the medial aspect of the L 3/4 facet joint. A kerrison rongeure was then used to take down the remaining lamina and smooth the edge of the laminectomy up to the point where the ligamentum flavum attaches. Attention was then brought to the medial aspect of the facet joint. The remaining medial aspect of the superior and inferior aspect of the facet joint were taken down with the kerrison from the pedicle of L3 to L 4. The facet joint had significant hypertrophy. Attention was then brought to the Ligamentum Flavum. The ligament was taken down from the lamina of L3 to L4 and out medially to the remaining facet joint. The ligament was thick. The dura was then exposed. The dura was in good repair. The L3 nerve was then traced with a curette out the L3/4 foramen and found to be adequately decompressed. The L4 nerve was traced with a curette around the L4 pedicle. The lateral recess was opened with a kerrison helping to further decompress the L4 nerve. Wound is then irrigated copiously with saline and surgiflo is used to stop any bleeding. The tubular retractor is removed and the A skin incision is made over the L4/5 level. This is confirmed under c-arm marguerite dance. A series of dilators are passed and the tubular retractor is docked on the L4 lamina. A bovie is used to clear the soft tissue off the lamina and the L 4/5 facet joint. A high speed abraham is then used to perform the laminectomy and take down the medial aspect of the L 4/5 facet joint. A kerrison rongeure was then used to take down the remaining lamina and smooth the edge of the laminectomy up to the point where the ligamentum flavum attaches. Attention was then brought to the medial aspect of the facet joint. The remaining medial aspect of the superior and inferior aspect of the facet joint were taken down with the kerrison from the pedicle of L4 to L 5. The facet joint had significant hypertrophy. Attention was then brought to the Ligamentum Flavum. The ligament was taken avel n from the lamina of L4 to L5 and out medially to the remaining facet joint. The ligament was thick. The dura was then exposed. The dura was in good repair. The L4 nerve was then traced with a curette out the L4/5 foramen and found to be adequately decompressed. The L5 nerve was traced with a curette around the L5 pedicle. The lateral recess was opened with a kerrison helping to further deco mpress the L5 nerve. Wound is then irrigated copiously with saline and surgiflo is used to stop any bleeding. The tubular retractor is removed and the wound is closed with vicryl and monocryl suture. Glue is then used to protect the wound. A sterile dressing is then placed. Patient was then placed in the supine position and transferred to the PACU in stable condition.
[2022-10-05 15:39] VITALS: BP 152/92; PULSE 66; RESP 16; TEMP 36.2; O2SAT 100
[2022-10-05] MEDS: HYDROcodone-acetaminophen 5-325 mg Tablet 1 TAB PO (16:02)
[2022-10-05 16:15] VITALS: BP 150/78; PULSE 68; RESP 18; TEMP 36.2; O2SAT 98
== END 2022-10-05 16:28 | disposition home or self-care (01) ==
PROVIDERS: Anesthesiology; PCP Family Medicine; Visit Provider Orthopaedic Surgery
PROC: (CPT 63005; principal; 2022-10-05 11:20)
DX: M48.062 Spinal stenosis, lumbar region with neurogenic claudication (principal); G47.33 Obstructive sleep apnea (adult) (pediatric); R06.09 Other forms of dyspnea; I48.91 Unspecified atrial fibrillation; I25.10 Atherosclerotic heart disease of native coronary artery without angina pectoris; I11.0 Hypertensive heart disease with heart failure; I50.9 Heart failure, unspecified; E11.9 Type 2 diabetes mellitus without complications; E78.5 Hyperlipidemia, unspecified; E66.01 Morbid (severe) obesity due to excess calories; Z68.35 Body mass index [BMI] 35.0-35.9, adult; E03.9 Hypothyroidism, unspecified; Z79.82 Long term (current) use of aspirin; Z79.84 Long term (current) use of oral hypoglycemic drugs; F17.210 Nicotine dependence, cigarettes, uncomplicated
CPT/HCPCS: 63047; 63048; 36415; 36416; 72020; 76000; 80048; 82962; 85025; J0690; J1100; J2370; J2405; J2704; J3010; J3490; J7030

== ENCOUNTER → 2022-11-22 10:50 | Outpatient (BNVA) | payer OTHER, MEDICAID, SELFPAY | PROVIDERS: PCP Family Medicine; Visit Provider Family Medicine | DX: E03.9 Hypothyroidism, unspecified (principal); E11.9 Type 2 diabetes mellitus without complications; I10 Essential (primary) hypertension | CPT/HCPCS: 80053; 80061; 83036; 84443 ==

== ENCOUNTER → 2023-02-20 14:11 | Outpatient (BNVA) | payer OTHER, MEDICAID, SELFPAY | PROVIDERS: PCP Family Medicine; Visit Provider Family Medicine | DX: M62.830 Muscle spasm of back (principal); I50.22 Chronic systolic (congestive) heart failure; I10 Essential (primary) hypertension; E03.9 Hypothyroidism, unspecified; E11.40 Type 2 diabetes mellitus with diabetic neuropathy, unspecified; N52.9 Male erectile dysfunction, unspecified; M51.16 Intervertebral disc disorders with radiculopathy, lumbar region; E11.42 Type 2 diabetes mellitus with diabetic polyneuropathy; F17.200 Nicotine dependence, unspecified, uncomplicated; E78.5 Hyperlipidemia, unspecified; G25.81 Restless legs syndrome | CPT/HCPCS: 80048; 83036; 84439; 84443; 84481 ==

== ENCOUNTER → 2023-05-16 14:27 | Outpatient (BNVA) | payer OTHER, MEDICAID, SELFPAY | PROVIDERS: PCP Family Medicine; Visit Provider Family Medicine | DX: E11.9 Type 2 diabetes mellitus without complications (principal); E03.9 Hypothyroidism, unspecified; I25.10 Atherosclerotic heart disease of native coronary artery without angina pectoris; G25.81 Restless legs syndrome; I50.22 Chronic systolic (congestive) heart failure; I10 Essential (primary) hypertension; M51.16 Intervertebral disc disorders with radiculopathy, lumbar region; M62.830 Muscle spasm of back; Z68.35 Body mass index [BMI] 35.0-35.9, adult | CPT/HCPCS: 80053; 83036; 84439; 84443; 84481 ==

== ENCOUNTER → 2023-09-19 15:07 | Outpatient (BNVA) | payer OTHER, MEDICAID, SELFPAY | PROVIDERS: PCP Family Medicine; Visit Provider Family Medicine | DX: R82.90 Unspecified abnormal findings in urine (principal); R39.11 Hesitancy of micturition; R19.7 Diarrhea, unspecified; J44.1 Chronic obstructive pulmonary disease with (acute) exacerbation; K59.1 Functional diarrhea | CPT/HCPCS: 81000; 87086 ==

== ENCOUNTER 2023-10-11 13:27 | Outpatient (CLI) | payer OTHER, MEDICAID, SELFPAY ==
--- NOTE | 2023-10-11 13:45 | MR_ITS ---
WS: [id number] MRI LUMBAR SPINE NONCONTRAST TECHNIQUE: Sagittal T1, T2 and STIR imaging. Axial T1 and T2 imaging. CLINICAL INFORMATION: M51.16 - Intervertebral disc disorders with radiculopathy... COMPARISON: MRI 12/18/2021 FINDINGS: Mild lumbar curve. No acute compression. Disc bulging worse at L2-L3 L3-L4 and L5-S1. Interval LEFT h emilaminectomy L3-4 and possibly LEFT L4-5. L1-L2: Mild facet arthropathy. Spinal canal and foramen are patent. L2-L3: Broad-based central disc protrusion with mild central canal stenosis and impingement of the banuelos barticular recess bilaterally. This is similar to previous. Mild facet arthropathy. Mild LEFT greater than RIGHT foraminal narrowing. L3-L4: Mild annular bulging. Spinal canal stenosis at this level has improved with LEFT hemilaminecto my. Moderate RIGHT and mild LEFT foraminal narrowing. Mild facet arthropathy. L4-L5: Mild annular bulging. Slight narrowing of the LEFT subarticular recess appears improved from p revious. Mild LEFT greater than RIGHT foraminal narrowing. Mild facet arthropathy. L5-S1: Mild annular bulging with a shallow RIGHT paracentral protrusion. Slight impingement on the RI GHT S1 nerve root. This is similar to previous. Moderate LEFT and mild RIGHT foraminal narrowing. Mod erate facet arthropathy. Visualized pelvic bony structures: Normal. Paravertebral soft tissues: Normal. IMPRESSION: 1. Mild lumbar curve. No acute compression. 2. Interval LEFT laminectomy defects L3-L4 and probably L4-L5. 3. Mild central canal stenosis L2-3 with narrowing of the subarticular recess bilaterally similar to previous. Mild LEFT L2-3 foraminal narrowing. 4. Resolution of the central canal stenosis at L3-4 with moderate RIGHT and mild LEFT foraminal narr owing. 5. Slight residual narrowing of the LEFT L4-5 subarticular recess with mild LEFT greater than RIGHT foraminal narrowing. 6. Shallow RIGHT paracentral protrusion L5-S1 slightly impinges the RIGHT S1 nerve root similar to p revious. Moderate LEFT L5-S1 foraminal narrowing impinges the exiting LEFT L5 nerve root.
== END 2023-10-11 13:28 | disposition home or self-care (01) ==
LOC: RAD 13:27
PROVIDERS: PCP Family Medicine; Visit Provider Anesthesiology Pain Medicine
DX: M51.16 Intervertebral disc disorders with radiculopathy, lumbar region (principal); M51.27 Other intervertebral disc displacement, lumbosacral region
CPT/HCPCS: 72148

== ENCOUNTER → 2023-11-13 14:51 | Outpatient (BNVA) | payer OTHER, MEDICAID, SELFPAY | PROVIDERS: PCP Family Medicine; Visit Provider Family Medicine | DX: M62.830 Muscle spasm of back (principal); M51.16 Intervertebral disc disorders with radiculopathy, lumbar region; E03.9 Hypothyroidism, unspecified; I50.22 Chronic systolic (congestive) heart failure; I10 Essential (primary) hypertension; G25.81 Restless legs syndrome; R39.11 Hesitancy of micturition; I25.10 Atherosclerotic heart disease of native coronary artery without angina pectoris; E11.9 Type 2 diabetes mellitus without complications; L57.0 Actinic keratosis; E11.42 Type 2 diabetes mellitus with diabetic polyneuropathy; N40.1 Benign prostatic hyperplasia with lower urinary tract symptoms; Z59.9 Problem related to housing and economic circumstances, unspecified; E78.1 Pure hyperglyceridemia; Z79.899 Other long term (current) drug therapy | CPT/HCPCS: 80053; 80061; 83036; 84443 ==

== ENCOUNTER → 2024-08-06 12:50 | Outpatient (BNVA) | payer OTHER, SELFPAY | PROVIDERS: PCP Family Medicine; Referring Provider Family Medicine; Visit Provider Family Medicine | DX: E11.9 Type 2 diabetes mellitus without complications (principal); E03.9 Hypothyroidism, unspecified; E78.1 Pure hyperglyceridemia; I10 Essential (primary) hypertension | CPT/HCPCS: 80053; 80061; 83036; 84439; 84443; 84481 ==

== ENCOUNTER → 2024-12-28 14:42 | Outpatient (BNVA) | payer OTHER, SELFPAY | PROVIDERS: PCP Family Medicine; Visit Provider Family Medicine | DX: E03.9 Hypothyroidism, unspecified (principal); I10 Essential (primary) hypertension; I50.22 Chronic systolic (congestive) heart failure; E78.5 Hyperlipidemia, unspecified; E11.9 Type 2 diabetes mellitus without complications | CPT/HCPCS: 80053; 80061; 83036; 83735; 84439; 84443; 84481; 85025 ==

== ENCOUNTER → 2025-03-08 15:41 | Outpatient (BNVA) | payer OTHER, SELFPAY | PROVIDERS: PCP Family Medicine; Visit Provider Nurse Practitioner | DX: R10.9 Unspecified abdominal pain (principal); R31.9 Hematuria, unspecified | CPT/HCPCS: 81000; 87086 ==

== ENCOUNTER → 2025-03-11 15:25 | Outpatient (BNVA) | payer OTHER, SELFPAY | PROVIDERS: PCP Family Medicine; Visit Provider Internal Medicine Cardiovascular Disease | DX: R07.9 Chest pain, unspecified (principal) | CPT/HCPCS: 93005 ==

== ENCOUNTER → 2025-04-13 14:49 | Outpatient (BNVA) | payer OTHER, SELFPAY | PROVIDERS: PCP Family Medicine; Visit Provider Nurse Practitioner | DX: M79.672 Pain in left foot (principal) | CPT/HCPCS: 84550 ==

== ENCOUNTER → 2025-05-17 14:44 | Outpatient (BNVA) | payer OTHER, SELFPAY | PROVIDERS: PCP Family Medicine; Visit Provider Family Medicine | DX: I50.22 Chronic systolic (congestive) heart failure (principal); I10 Essential (primary) hypertension; Z78.9 Other specified health status; E78.5 Hyperlipidemia, unspecified; E11.9 Type 2 diabetes mellitus without complications; E03.9 Hypothyroidism, unspecified | CPT/HCPCS: 80053; 83036; 84439; 84443; 84481 ==